=== PATIENT | female | born 1995 | race African-American/Black ===

== ENCOUNTER 2017-02-06 00:24 | Outpatient (CLI) | payer OTHER, BC ==
[2017-02-06 01:35] LABS: APPEARANCE,URINE CLEAR; BILIRUBIN,URINE NEGATIVE (NEGATIVE); GLUCOSE, URINE NEGATIVE (NEGATIVE); KETONES,URINE TRACE mg/dL (NEGATIVE); LEUKOCYTE ESTERASE,URINE NEGATIVE (NEGATIVE); NITRITE,URINE NEGATIVE (NEGATIVE); PROTEIN,URINE NEGATIVE (NEGATIVE); URINE SPECIFIC GRAVITY 1.006; UROBILINOGEN,URINE NEGATIVE mg/dL (<2.0)
--- NOTE | 2017-02-06 02:13 | Non Stress Test Report ---
Non Stress Test Datetime Report Generated by CPN: 02/06/2017 02:13 DEMOGRAPHIC Test Number: 1 EGA NST: 39.1 INDICATION Indication for Study: Ordered by Provider MONITORING Monitor Explained: Monitor Explained; Test Explained; Patient Verbalized Understanding Time on Monitor: 02/06/2017 00:49 Time off Monitor: 02/06/2017 01:57 NST Duration: 68 NST INTERVENTIONS NST Interventions: PO Hydration; Reposition Patient Physician Notified NST: Dr. Neilsen BABY A: [id number] BABY A Movement : Present Contraction Frequency : 4-10 FHR Baseline : 125 Accelerations : 15X15 Decelerations : None Variability : Moderate 6-25bpm NST Review: Meets Criteria for Reactive NST NST Review and Verified By : Jordan Bradford RN NST Results: Reactive NST REPORT Report Trigger: Send Report
[2017-02-06 02:33] LABS: URINE BARBITURATES SCREEN NEGATIVE; URINE METHADONE SCREEN NEGATIVE; URINE OPIATES LOW NEGATIVE; URINE PHENCYCLIDINE SCREEN NEGATIVE
--- NOTE | 2017-02-06 04:47 | L&D Admission Assessment ---
LD ADM ASMT Datetime Report Generated by CPN: 02/06/2017 04:45 Weight (lb): 167 (02/06/2017 00:43:QS system process) Weight (kg): 75.9 (02/06/2017 00:43:QS system process) Total Wt Gain (lb): 22 (02/06/2017 00:43:QS system process) Wt Gain (kg): 10.1 (02/06/2017 00:43:QS system process) Frequency (min): 1.5-6 (02/06/2017 01:57:Monica Lattibeaudeir, RN) Frequency (min): 1.5-5.5 (02/06/2017 01:30:Monica Lattibeaudeir, RN) Frequency (min): x1 (02/06/2017 01:01:Monica Lattibeaudeir, RN) Duration (sec): 60-140 (02/06/2017 01:57:Monica Lattibeaudeir, RN) Duration (sec): 60-130 (02/06/2017 01:30:Monica Lattibeaudeir, RN) Duration (sec): 110 (02/06/2017 01:01:Monica Lattibeaudeir, RN) Quality: Moderate (02/06/2017 01:57:Monica Lattibeaudeir, RN) Quality: Mild/Moderate (02/06/2017 01:30:Monica Lattibeaudeir, RN) Quality: Moderate (02/06/2017 01:01:Monica Lattibeaudeir, RN) Resting Tone [place]: Relaxed (02/06/2017 01:57:Monica Lattibeaudeir, RN) Resting Tone [place]: Relaxed (02/06/2017 01:30:Monica Altman RN) Resting Tone [place]: Relaxed (02/06/2017 01:01:Monica Altman RN) Dilatation (cm): 2.5 (02/06/2017 00:55:Monica Altman RN) Effacement (%): 80 (02/06/2017 00:55:Monica Altman RN) Station: -3 (02/06/2017 00:55:Monica Altman RN) FHR Baseline Rate (bpm) Baby A: 120 (02/06/2017 01:57:Monica Altman RN) FHR Baseline Rate (bpm) Baby A: 120 (02/06/2017 01:30:Monica Altman RN) FHR Baseline Rate (bpm) Baby A: 135 (02/06/2017 01:01:Monica Altman RN) Variability Baby A: Moderate 6-25 bpm (02/06/2017 01:57:Monica Altman RN) Variability Baby A: Moderate 6-25 bpm (02/06/2017 01:30:Monica Altman RN) Variability Baby A: Moderate 6-25 bpm (02/06/2017 01:01:Monica Altman RN) Accelerations Baby A: 15X15 (02/06/2017 01:57:Monica Altman RN) Accelerations Baby A: 15X15 (02/06/2017 01:30:Monica Altman RN) Accelerations Baby A: 15X15 (02/06/2017 01:01:Monica Altman RN)
--- NOTE | 2017-02-06 04:47 | Antepartum Discharge Summary ---
Antepartum DC Datetime Report Generated by CPN: 02/06/2017 04:45 Diet: Regular (02/06/2017 02:01:Monica Altman RN) Activity: Normal Activity (02/06/2017 02:01:Monica Altman RN) Instructions Given To: Patient (02/06/2017 02:01:Monica Altman RN) Instructions Understood: Patient Verbalized Understanding; Support Person Verbalized Understanding (02/06/2017 02:01:Monica Altman RN) Referrals: None (02/06/2017 02:01:Monica Altman RN) Educational Materials- Other: Pt given labor signs and kick count care notes. (02/06/2017 02:01:Monica Altman RN) Discharged AMA: No (02/06/2017 02:01:Monica Altman RN) Discharge Date/Time: 02/06/2017 02:06 (02/06/2017 02:01:Monica Altman RN) Discharged To: Home (02/06/2017 02:01:Monica Altman RN) Discharge Provider Name: Dr. Walsh (02/06/2017 02:01:Monica Altman RN) Accompanied By: (02/06/2017 02:01:Monica Atlman RN) Discharge Method: Ambulatory (02/06/2017 02:01:Monica Altman RN) Condition: Stable (02/06/2017 02:01:Monica Altman RN) Follow Up With: [facility] (02/06/2017 02:01:Monica Altman RN) Follow Up On: As Scheduled (02/06/2017 02:01:Monica Altman RN) Follow Up Phone Number: [facility] - (02/06/2017 02:01:Monica Altman RN)
--- NOTE | 2017-02-06 04:47 | L&D Flow Sheet ---
LD Flowsheet Datetime Report Generated by CPN: 02/06/2017 04:45 Datetime: 02/06/2017 02:06 Additional Nursing Comments: Informed pt of orders received. Pt declines Ambien. Pt advised to keep appts as scheduled and f/u in L_D or physician's office as needed. Pt given labor signs and kick counts care notes. Pt verbalized understanding and denies any questions at this time. (Monica Altman RN) Datetime: 02/06/2017 01:57 Monitor Mode: External (Monica Lattibeaudeir, RN) Frequency (min): 1.5-6 (Monica Lattibeaudeir, RN) Quality: Moderate (Monica Lattibeaudeir, RN) Duration (sec): 60-140 (Monica Lattibeaudeir, RN) Resting Tone ([place]): Relaxed (Monica Lattibeaudeir, RN) Monitor Mode: External US (Monica Lattibeaudeir, RN) FHR Baseline Rate : 120 (Monica Lattibeaudeir, RN) Variability: Moderate 6-25 bpm (Monica Lattibeaudeir, RN) Accelerations: 15X15 (Monica Lattibeaudeir, RN) Comments: Monitors removed for discharge. (Monica Lattibeaudeir, RN) Datetime: 02/06/2017 01:54 Communication Comments: Informed Dr. Walsh of SVE, contraction pattern, strip, and UA results. Received orders to discharge home. Patient may have ambien 10 mg PO prior to discharge if wanted. (Monica Lattibeaudeir, RN) Datetime: 02/06/2017 01:30 Monitor Mode: External (Monica Lattibeaudeir, RN) Frequency (min): 1.5-5.5 (Monica Lattibeaudeir, RN) Quality: Mild/Moderate (Monica Lattibeaudeir, RN) Duration (sec): 60-130 (Monica Lattibeaudeir, RN) Resting Tone ([place]): Relaxed (Monica Lattibeaudeir, RN) Monitor Mode: External US (Monica Lattibeaudeir, RN) FHR Baseline Rate : 120 (Monica Lattibeaudeir, RN) Variability: Moderate 6-25 bpm (Monica Lattibeaudeir, RN) Accelerations: 15X15 (Monica Lattibeaudeir, RN) Datetime: 02/06/2017 01:19 Monitor Interventions for FHR: Ultrasound Adjusted (Monica Lattibeaudeir, RN) Patient Position/Activity: Right Lateral (Monica Lattibeaudeir, RN) Datetime: 02/06/2017 01:01 Monitor Mode: External (Monica Lattibeaudeir, RN) Frequency (min): x1 (Monica Lattibeaudeir, RN) Quality: Moderate (Monica Lattibeaudeir, RN) Duration (sec): 110 (Monica Lattibeaudeir, RN) Resting Tone (Palpate): Relaxed (Monica Lattibeaudeir, RN) Monitor Mode: External US (Monica Lattibeaudeir, RN) FHR Baseline Rate : 135 (Monica Lattibeaudeir, RN) Variability: Moderate 6-25 bpm (Monica Lattibeaudeir, RN) Accelerations: 15X15 (Monica Lattibeaudeir, RN) Datetime: 02/06/2017 00:57 I/O Interventions: Up to BR (Monica Lattibeaudeir, RN) Datetime: 02/06/2017 00:55 Dilatation (cm): 2.5 (Monica Lattibeaudeir, RN) Effacement (%): 80 (Monica Lattibeaudeir, RN) Station: -3 (Monica Lattibeaudeir, RN) Exam by: S. Lattibeaudeir, RN (Monica Lattibeaudeir, RN) Vaginal Bleeding: None (Monica Lattibeaudeir, RN) Cervix, Consistency: Soft (Monica Lattibeaudeir, RN) Cervix, Position: Posterior (Monica Lattibeaudeir, RN) Datetime: 02/06/2017 00:52 NBP Sys/Cecy/Mean (mmHg): 117 (QS system process) : 67 (QS system process) : 86 (QS system process) Pulse: 84 (QS system process) Datetime: 02/06/2017 00:49 Comments: monitors applied (Monica Lattibeaudeir, RN) Datetime: 02/06/2017 00:48 I/O Interventions: Up to BR (Monica Altman RN)
--- NOTE | 2017-02-06 04:47 | L&D Discharge Summary ---
OB Discharge Summary Datetime Report Generated by CPN: 02/06/2017 04:45 DISCHARGE DIAGNOSIS Diagnosis/Symptoms: False Labor Number of Babies in Womb: 1 Parity: 1 DIET/ACTIVITY/RESTRICTIONS Diet: Regular Activity: Normal Activity TEACHING/INSTRUCTIONS/REFERRALS Instructions Given To: Patient Instructions Understood: Patient Verbalized Understanding; Support Person Verbalized Understanding Referrals: None Educational Materials- Other: Pt given labor signs and kick count care notes. DISCHARGE INFORMATION Discharged AMA: No Discharge Date/Time: 02/06/2017 02:06 Discharged To: Home Discharge Provider Name: Dr. Walsh Accompanied By: Discharge Method: Ambulatory Condition: Stable FOLLOW UP INFORMATION Follow Up With: [facility] Follow Up On: As Scheduled Follow Up Phone Number: [facility] -
--- NOTE | 2017-02-06 04:47 | L&D General Admission ---
General Admit Datetime Report Generated by CPN: 02/06/2017 04:45 INFORMATION Patient Age: 21 (01/31/2017 07:38:QS system process) EDC: 02/12/2017 00:00 (02/06/2017 00:28:Flora Tao RN) : 2 (02/06/2017 00:28:Monica Altman RN) Para: 1 (02/06/2017 00:28:Monica Altman RN) Term: 1 (02/06/2017 00:28:Monica Altman RN) : 0 (02/06/2017 00:28:Monica Altman RN) Spontaneous Abortions: 0 (02/06/2017 00:28:Monica Altman RN) Induced Abortions: 0 (02/06/2017 00:28:Monica Altman RN) Livin (02/06/2017 00:28:Monica Altman RN) Cesareans: 0 (02/06/2017 00:28:Monica Altman RN) VBACs: 0 (02/06/2017 00:28:Monica Altman RN) Ectopic: 0 (02/06/2017 00:28:Monica Altman RN) Multiple Births: 0 (02/06/2017 00:28:Monica Altman RN) Baby, Number in Womb: 1 (02/06/2017 00:28:Monica Altman RN) CARE Primary Drama Professor: [facility] (02/06/2017 00:28:Monica Altman RN) Month of 1st Visit: July 2016 (02/06/2017 00:28:Monica Altman RN) Adequate Care: Yes (02/06/2017 00:28:Monica Altman RN) Prepregnancy Weight (lb): 145 (02/06/2017 00:28:Monica Altman RN) Prepregnancy Weight (kg): 65.9 (02/06/2017 00:28:QS system process) Height (in): 66 (02/06/2017 00:43:QS system process) ALLERGIES Medication Allergy: No (02/06/2017 00:28:Monica Altman RN) Medication Allergies: No Known Allergies (11/17/2015) (01/31/2017 07:38:QS system process) Latex Allergy: No Latex Allergies (02/06/2017 00:28:Monica Altman RN) COMMUNICATION Primary Language: Singaporean (02/06/2017 00:28:Monica Altman RN) Medical Tx Preferred Language: Singaporean (02/06/2017 00:28:Monica Altman RN) Communication Barrier(s): None (02/06/2017 00:28:Monica Altman RN) DEMOGRAPHICS Address: [address] [place] [address] (01/31/2017 07:38:QS system process) Zipcode: [address] (01/31/2017 07:38:QS system process) Home (01/31/2017 07:38:QS system process) SSN: [id number] (01/31/2017 07:38:QS system process) Next of Kin Name: YENNY CHUNG (01/31/2017 07:38:QS system process) Next of Kin (01/31/2017 07:38:QS system process) Next of Kin Relationship: SPO (01/31/2017 07:38:QS system process) Date of : 1995 (01/31/2017 07:38:QS system process) Marital Status: (01/31/2017 07:38:QS system process) Sex: Female (01/31/2017 07:38:QS system process) Race: (01/31/2017 07:38:QS system process) Ethnicity: Non- or (01/31/2017 07:38:QS system process) Bahai: Hindu (01/31/2017 07:38:QS system process) LABS Blood Type: A Positive (02/06/2017 00:28:Monica Altman RN) Antibody Screen: Negative (02/06/2017 00:28:Monica Altman RN) Rho(G) this : Not Applicable (02/06/2017 00:28:Monica Altman RN) Group Beta Strep: Negative (02/06/2017 00:28:Monica Altman RN) Gonorrhea: Negative (02/06/2017 00:28:Monica Altman RN) Chlamydia: Negative (02/06/2017 00:28:Monica Altman RN) RPR/VDRL: Nonreactive (02/06/2017 00:28:Monica Altman RN) HIV Results: Negative (02/06/2017 00:28:Monica Altman RN) Hepatitis B: Negative (02/06/2017 00:28:Monica Altman RN) Rubella: Immune (02/06/2017 00:28:Monica Altman RN) OB/PREVIOUS HISTORY Previous Procedures: Ultrasound; NST (02/06/2017 00:28:Monica Altman RN) Current Procedures: Ultrasound; NST (02/06/2017 00:28:Monica Altman RN) History of PIH: Yes (02/06/2017 00:28:Monica Altman RN) Comments Obstetrical History: G1- of female @ 39.6 wks gestation 8lbs 5oz G2-Current (02/06/2017 00:28:Monica Altman RN) MEDICAL HISTORY Med Hx Kidney Disease/UTI: Yes (02/06/2017 00:28:Monica Altman RN)
== END 2017-02-06 02:06 | disposition home or self-care (01) ==
LOC: LC 00:24
PROVIDERS: ATTEND Specialist
PROC: 4A1HXCZ Monitoring of Products of Conception, Cardiac Rate, External Approach (ICD-10-PCS; principal; 2017-02-06)
DX: O47.1 False labor at or after 37 completed weeks of gestation (principal); Z3A.39 39 weeks gestation of pregnancy
CPT/HCPCS: 59025; 80307; 81005

== ENCOUNTER 2017-02-08 19:16 | Inpatient (IN) | payer OTHER, BC ==
[2017-02-08] MEDS ORDERED: RINGERS SOLUTION,LACTATED 1,000 ML IV ONE (19:52)
[2017-02-08] MEDS ORDERED: FENTANYL/BUPIVACAINE/NS/PF 100 ML EPI PRN (19:54)
[2017-02-08] MEDS ORDERED: BENZOIN/ALOE VERA/STORAX/TOLU TINCTURE 60 ML TP PRN (19:54)
[2017-02-08] MEDS ORDERED: BUPIVACAINE HCL 0.25 % INJ/PF (2.5 MG/1 ML) 30 ML VIAL INFIL ONE (19:54)
[2017-02-08] MEDS ORDERED: EPHEDRINE SULFATE INJ 50 MG/1 ML AMPULE IV PRN (19:54)
[2017-02-08 19:58] LABS: APPEARANCE,URINE SLIGHTLY-CLOUDY; BILIRUBIN,URINE NEGATIVE (NEGATIVE); GLUCOSE, URINE NEGATIVE (NEGATIVE); KETONES,URINE NEGATIVE (NEGATIVE); LEUKOCYTE ESTERASE,URINE TRACE (NEGATIVE); NITRITE,URINE NEGATIVE (NEGATIVE); PROTEIN,URINE NEGATIVE (NEGATIVE); URINE SPECIFIC GRAVITY 1.009; UROBILINOGEN,URINE NEGATIVE mg/dL (<2.0)
--- NOTE | 2017-02-08 20:03 | L&D Flow Sheet ---
LD Flowsheet Datetime Report Generated by CPN: 02/08/2017 20:00 Datetime: 02/08/2017 19:50 Communication Comments: DrSharita Infante notified of pt's dilation . Orders received to admit. (Camryn Voss, JESUSITA) Datetime: 02/08/2017 19:47 Dilatation (cm): 5.0 (Camryn Voss RN) Effacement (%): 80 (Camryn Voss RN) Station: 0 (Camryn Voss RN) Exam by: JESSICA Ellison (Camryn Voss RN) Vaginal Bleeding: None (Camryn Voss RN) Cervix, Consistency: Soft (Camryn Voss RN) Cervix, Position: Midposition (Camryn Voss RN) Datetime: 02/08/2017 19:39 Frequency (min): q 2 min (Camryn Voss RN) Pain Scale: 3 (Camryn Voss RN) Pain Presence: Intermittent (Camryn Voss RN) Pain Type: Cramping (Camryn Voss RN) Pain Location: Abdomen (Camryn Voss RN) Pain Coping: Breathing Through Contractions (Camryn Voss RN) Vaginal Bleeding: None (Camryn Voss RN) Level of Consciousness: Fully Conscious (Camryn Voss RN) DTR's/Clonus: DTRs 1+ (Camryn Voss RN) Headache: Denies (Camryn Voss RN) Breath Sounds, Left: Clear and Equal (Camryn Voss RN) Breath Sounds, Right: Clear and Equal (Camryn Voss RN) Nausea/Vomiting: Denies (Camryn Voss RN) RUQ Epigastric Pain: Denies (Camryn Voss, RN) Datetime: 02/08/2017 19:31 NBP Sys/Cecy/Mean (mmHg): 136 (QS system process) : 88 (QS system process) : 107 (QS system process) Pulse: 88 (QS system process)
[2017-02-08 20:12] LABS: URINE BARBITURATES SCREEN NEGATIVE; URINE METHADONE SCREEN NEGATIVE; URINE OPIATES LOW NEGATIVE; URINE PHENCYCLIDINE SCREEN NEGATIVE
[2017-02-08] MEDS ORDERED: EPHEDRINE SULFATE INJ 50 MG/1 ML AMPULE ONE ×2 (20:17→20:23)
[2017-02-08] MEDS ORDERED: FENTANYL/BUPIVACAINE/NS/PF 200 MCG/100 ML RTUINJ EPI ONE (20:17)
[2017-02-08] MEDS ORDERED: BUPIVACAINE HCL 0.25 % INJ/PF (2.5 MG/1 ML) 30 ML VIAL ONE (20:17)
[2017-02-08] MEDS ORDERED: LIDOCAINE 1% INJ-PF (10 MG/ML) 30 ML SDV ONE (20:18)
[2017-02-08] MEDS ORDERED: OXYTOCIN/NORMAL SALINE 20 UNIT/1,000 ML RTUINJ ONE (20:18)
[2017-02-08] MEDS ORDERED: MISOPROSTOL 0.2 MG TABLET ONE (20:18)
[2017-02-08 20:26] LABS: ABSOLUTE EOSINOPHILS # (AUTO) 0.2 10^3/uL (0.0-0.6); ABSOLUTE LYMPHOCYTES (AUTO) 2.8 10^3/uL (0.5-4.7); ABSOLUTE MONOCYTES (AUTO) 0.7 10^3/uL (0.1-1.4); ABSOLUTE NEUT (AUTO) 5.6 10^3/uL (1.7-8.2); BASOPHILS % (AUTO) 0.4 % (0-2); EOSINOPHILS % (AUTO) 2.4 % (0-6); HEMATOCRIT 35.6 % (36.0-47.0); HEMOGLOBIN 12.5 g/dL (12.0-15.5); HGB HCT DIFFERENCE 1.9; LYMPHOCYTES % (AUTO) 29.7 % (13-45); MEAN CORPUSCULAR HEMOGLOBIN 30.6 pg (27.0-33.4); MEAN CORPUSCULAR HGB CONC 35.3 g/dL (32.0-36.0); MEAN CORPUSCULAR VOLUME 87 fl (80-97); MONOCYTES % (AUTO) 7.5 % (3-13); RED CELL DISTRIBUTION WIDTH 13.7 % (11.5-14.0); WHITE BLOOD COUNT 9.3 10^3/uL (4.0-10.5)
[2017-02-08] MEDS ORDERED: DIBUCAINE 1% OINTMENT 28 GM TP PRN (23:49)
[2017-02-08] MEDS ORDERED: MEASLES,MUMPS&RUBELLA VACC/PF 0.5 ML VIAL SUBCUT PRN (23:49)
[2017-02-08] MEDS ORDERED: ACETAMINOPHEN WITH CODEINE #3 TABLET PO PRN ×2 (23:49)
[2017-02-08] MEDS ORDERED: OXYTOCIN/NORMAL SALINE 1,000 ML IV PRN (23:49)
[2017-02-08] MEDS ORDERED: DIPH/PERTUSS(ACELL)/TETANUS VAC/PF 0.5 ML SYR (>=10YO) IM PRN (23:49)
[2017-02-08] MEDS ORDERED: BENZOCAINE/MENTHOL AEROSOL SPRAY 56 ML TOP PRN (23:49)
[2017-02-08] MEDS ORDERED: ZOLPIDEM TARTRATE 5 MG TABLET PO PRN (23:49)
--- NOTE | 2017-02-09 01:20 | Delivery Summary ---
Del Sum A-C Datetime Report Generated by CPN: 02/09/2017 01:19 ADMISSION DATA Chief Complaint: Uterine Contractions Indication for Induction: Not Applicable Admission Impression: Term, Intrauterine DELIVERY PERSONNEL Delivery Doctor:: Zara Infante MD Anesthesiologist:: Samson oWody MD Labor and Delivery Nurse:: Ling Michaels RN Labor and Delivery Nurse:: Sabi Oglesby RN Community Association Manager/SOLAR ELECTRIC/PHOTOVOLTAIC INSTALLER: Yanet Mc, TOPPIECE CHOPPER MATERNAL INFORMATION Delivery Anesthesia: Epidural Medications After Delivery: Pitocin Drip 20 Units/1000ml NSS Estimated Blood Loss (ml): 200 Maternal Complications: None LABOR SUMMARY EDC: 02/12/2017 00:00 No. Babies in Womb: 1 Attempted: No Labor Anesthesia: Epidural LABOR INFORMATION Reason for Induction: Not Applicable Onset of Labor: 02/08/2017 19:47 Complete Dilatation: 02/08/2017 23:03 Oxytocin: N/A Group B Beta Strep: Negative Antibiotics # of Doses: 0 Steroids Given: None Reason Steroids Not Administered: Not Applicable MEMBRANES Membranes Rupture Method: Spontaneous Rupture of Membranes: 02/08/2017 23:07 Length of Rupture (hr): 0.48 Amniotic Fluid Color: Clear Amniotic Fluid Amount: Moderate Amniotic Fluid Odor: Normal STAGES OF LABOR Stage 1 hr: 3 Stage 1 min: 16 Stage 2 hr: 0 Stage 2 min: 33 Stage 3 hr: 0 Stage 3 min: 7 Total Time in Labor hr: 3 Total Time in Labor min: 56 VAGINAL DELIVERY Episiotomy: None Laceration Extension: N/A Laceration Type: None Laceration Repair: Not Applicable Sponge Count Correct: N/A Sharps Count Correct: N/A CSECTION DELIVERY Primary Indication: N/A Secondary Indication: N/A CSection Incidence: N/A Labor: N/A Elective: N/A CSection Incision: N/A BABY A INFORMATION Delivery Date/Time: 02/08/2017 23:36 Method of Delivery: Vaginal Born in Route : No : N/A Forceps: N/A Vacuum Extraction: N/A Shoulder Dystocia : No PRESENTATION/POSITION BABY A Presentation: Cephalic Cephalic Presentation: Vertex Vertex Position: Left Occipital Anterior Breech Presentation: N/A PLACENTA INFORMATION BABY A Placenta Delivery Time : 02/08/2017 23:43 Placenta Method of Delivery: Spontaneous Placenta Status: Delivered SCORES BABY A Heart Rate 1 min: >100 bpm Resp Effort 1 min: Good Cry Reflex Irritability 1 min: Cough or Sneeze or Pulls Away Muscle Tone 1 min: Active Motion Color 1 min: Body [place], Extremities Blue Resuscitation Effort 1 min: Tactile Stimulation SCORE 1 MIN: 9 Heart Rate 5 min: >100 bpm Resp Effort 5 min: Good Cry Reflex Irritability 5 min: Cough or Sneeze or Pulls Away Muscle Tone 5 min: Active Motion Color 5 min: Body [place], Extremities Blue Resuscitation Effort 5 min: Tactile Stimulation SCORE 5 MIN: 9 INFANT INFORMATION BABY A Gestational Age at Delivery: 39.3 Gestational Status: Full Term- 39- 40.6 Weeks Outcome : Liveborn Condition : Stable Sex: Male IDENTIFICATION BABY A Infant Verification Date/Time: 02/09/2017 00:01 ID Band Number: [id number] Mother's Name Verified: Yes Infant RN Verifying : SSharita Altman, RN _ Syd Armando RN WEIGHT/LENGTH BABY A Birthweight (gm): 3435 Infant Weight (lb): 7 Weight (oz): 9 Length (in): 19.50 Length (cm): 49.53 CORD INFORMATION BABY A No. Cord Vessels: 3 Nuchal Cord : N/A Cord Blood Taken: Yes-For Storage (Mom's Blood type +) Suction: Mouth; Nose ASSESSMENT BABY A Complications: Multiple Variable Decels Physical Findings at Delivery: Within Normal Limits Respirations: Appears Normal Skin to Skin: Yes Skin to Skin Time (min): 90 Cyber Reverse Engineer/ALS Called : No Care By: Afshin Preciadol, RN Transferred To: Remains with Mother BABY B INFORMATION : N/A SIGNATURES Signature: with User ID: [email or web address]
--- NOTE | 2017-02-09 01:53 | Admission Physical ---
Datetime Report Generated by CPN: 02/09/2017 01:53 CURRENT ADMISSION Chief Complaint: Uterine Contractions Indication for Induction: Not Applicable Admit Plan: Admit to Unit; Initiate Labor Protocol ALLERGIES Medication Allergies: No Medication Allergies: No Known Allergies (02/08/2017) Medication Allergies: No Known Allergies (11/17/2015) Latex: No Latex Allergies OBSTETRICAL HISTORY EDC: 02/12/2017 00:00 : 2 Para: 1 Term: 1 : 0 SAB: 0 IAB: 0 Ectopic: 0 Livin Cesareans: 0 VBACs: 0 Multiple Births: 0 Gestational Diabetes: No Rh Sensitization: No Incompetent Cervix: No PHILOMENA: No Infertility: No ART Treatment: No Uterine Anomaly: No IUGR: No Hx Previous C/S: No Macrosomia: No Hx Loss/Stillborn: No PIH: Yes Hx : No Placenta Previa/Abruption: No Depression/PP Depression: No PTL/PROM: No Post Hemorrhage: No Current Procedures: Ultrasound; NST Obstetrical History Comments: G1- of female @ 39.6 wks gestation 8lbs 5oz (on mag) G2-Current SEE RECORDS Alcohol: No Marijuana : No Cocaine: No Other Illicit Drugs: No Cigarettes: Never Smoker. [id number] MEDICAL HISTORY Diabetes: No Blood Transfusion: No Pulmonary Disease (Asthma, TB): No Breast Disease: No Hypertension: No Oncology Social Work Surgery: No Heart Disease: No Hosp/Surgery: Yes Autoimmune Disorder: No Anesthetic Complications: No Kidney Disease: Yes Abnormal Pap Smear: No Neuro/Epilepsy: No Psychiatric Disorders: No Other Medical Diseases: No Hepatitis/Liver Disease: No Significant Family History: No Varicosities/Phlebitis: No Trauma/Violence : No Thyroid Dysfunction: No Medical History Comments: UTI x 1 during ;hospitalized for childbirth INFECTIOUS HISTORY Gonorrhea: No Genital Herpes: No Chlamydia: No Tuberculosis: No Syphilis: No Hepatitis: No HIV/AIDS Exposure: No Rash or Viral Illness: No HPV: No Infectious History Comments: denies PHYSICAL EXAM General: Normal HEENT: Normal Neurologic: Normal Thyroid: Normal Heart: Normal Lungs: Normal Breast: Normal Back: Normal Abdomen: Normal Genitourinary Exam: Normal Extremities: Normal DTRs: Normal Pelvic Type: Adequate Vital Signs: Reviewed VAGINAL EXAM Dilatation: 5 Effacement: 80 Station: 0 MEMBRANES Pooling: Negative FETUS A EGA: 39.3 Monitoring: External US FHR- Baseline: 140 Variability: Moderate 6-25bpm Accelerations: 15X15 Decelerations: None Estimated Weight (gm): 3800 Presentation: Vertex PLANS FOR LABOR AND DELIVERY Labor and Delivery: None Pain Management: Epidural Feeding Preference: Breast Benefit of Breast Feed Discussed: Yes Circumcision: Yes INFORMED CONSENT Signature: with User ID: [email or web address]
[2017-02-09] MEDS: IBUPROFEN 800 MG TABLET PO SCH ×3 (05:19→22:08)
--- NOTE | 2017-02-09 07:00 | L&D Flow Sheet ---
LD Flowsheet Datetime Report Generated by CPN: 02/09/2017 07:00 Datetime: 02/09/2017 01:42 Stage of : Recovery (Crystal Brando, RN) Datetime: 02/09/2017 01:33 NBP Sys/Cecy/Mean (mmHg): 130 (QS system process) : 74 (QS system process) : 97 (QS system process) Pulse: 80 (QS system process) Datetime: 02/09/2017 01:30 Stage of : Recovery (Crystal Brando, RN) Datetime: 02/09/2017 01:18 NBP Sys/Cecy/Mean (mmHg): 133 (QS system process) : 83 (QS system process) : 104 (QS system process) Pulse: 71 (QS system process) Datetime: 02/09/2017 01:15 Stage of : Recovery (Crystal Claremont, RN) Datetime: 02/09/2017 01:03 NBP Sys/Cecy/Mean (mmHg): 112 (QS system process) : 63 (QS system process) : 79 (QS system process) Pulse: 84 (QS system process) Datetime: 02/09/2017 01:00 Stage of : Recovery (Crystal Brando, RN) Datetime: 02/09/2017 00:48 NBP Sys/Cecy/Mean (mmHg): 121 (QS system process) : 76 (QS system process) : 94 (QS system process) Pulse: 68 (QS system process) Datetime: 02/09/2017 00:45 Stage of : Recovery (Crystal Brando, RN) Datetime: 02/09/2017 00:33 NBP Sys/Cecy/Mean (mmHg): 127 (QS system process) : 63 (QS system process) : 88 (QS system process) Pulse: 81 (QS system process) Datetime: 02/09/2017 00:30 Stage of : Recovery (Crystal Brando, RN) Pain Scale: 1 (Crystal Brando, RN) Pain Presence: Intermittent (Crystal Brando, RN) Pain Type: Ache (Crystal Claremont, RN) Pain Location: Abdomen (Crystal Claremont, RN) Pain Goal: 1 (Crystal Claremont, RN) Pain Relief Measures: Comfort Measures (Crystal Claremont, RN) Datetime: 02/09/2017 00:17 NBP Sys/Cecy/Mean (mmHg): 142 (QS system process) : 67 (QS system process) : 92 (QS system process) Pulse: 82 (QS system process) Datetime: 02/09/2017 00:15 Stage of : Recovery (Crystal Claremont, RN) Datetime: 02/09/2017 00:03 NBP Sys/Cecy/Mean (mmHg): 130 (QS system process) : 70 (QS system process) : 94 (QS system process) Pulse: 86 (QS system process) Datetime: 02/09/2017 00:00 Stage of : Recovery (Crystal Brando, RN) Pain Scale: 0 (Crystal Brando, RN) Pain Presence: None/Denies (Crystal Claremont, RN) Pain Type: N/A (Crystal Brando, RN) Pain Goal: 1 (Crystal Claremont, RN) Pain Relief Measures: Comfort Measures (Crystal Claremont, RN) Datetime: 02/08/2017 23:48 NBP Sys/Cecy/Mean (mmHg): 132 (QS system process) : 60 (QS system process) : 86 (QS system process) Pulse: 94 (QS system process) LaborFlag: Labor (QS system process) Datetime: 02/08/2017 23:43 Stage 2 Comments: intact placenta. (Crystal Claremont, RN) Datetime: 02/08/2017 23:36 Stage 2 Comments: viable baby boy. (Crystal Brando, RN) Datetime: 02/08/2017 23:33 NBP Sys/Cecy/Mean (mmHg): 135 (QS system process) : 70 (QS system process) : 93 (QS system process) Pulse: 89 (QS system process) LaborFlag: Labor (QS system process) Datetime: 02/08/2017 23:32 Pushing: Coached on Pushing; Urge to Push (Crystal Brando, RN) Pushing Position: Pushing with Contractions (Crystal Claremont, RN) Datetime: 02/08/2017 23:30 Pushing: Urge to Push (Crystal Claremont, RN) Pushing Position: Pushing with Contractions (Crystal Claremont, RN) Pushing Progress: with Pushing (Crystal Claremont, RN) Datetime: 02/08/2017 23:23 Stage of : Labor (Ling Bennett RN) Communication: RN at Bedside; RN Reviewed Strip; Call/Page Placed to Provider (Ling Bennett RN) Provider Notified (Name): Dr. Infante (Ling Bennett RN) Notification Reason: Status Update; Status; Labor Status (Ling Bennett RN) Datetime: 02/08/2017 23:18 NBP Sys/Cecy/Mean (mmHg): 133 (QS system process) : 74 (QS system process) : 96 (QS system process) Pulse: 82 (QS system process) LaborFlag: Antepartum (QS system process) Datetime: 02/08/2017 23:15 Monitor Mode: External (Ling Bennett RN) Frequency (min): 2-3 (Ling Bennett RN) Quality: Moderate to Strong (Ling Bennett RN) Duration (sec): 60-90 (Ling Bennett RN) Duration Criteria: Less than Two 120 Second Contractions (Crystal Claremont, RN) Resting Tone (Palpate): Relaxed (Crystal Brando, RN) Monitor Mode: External US (Crystal Brando, RN) FHR Baseline Rate : 135 (Crystal Brando, RN) Variability: Moderate 6-25 bpm (Crystal Claremont, RN) Accelerations: 15X15 (Crystal Claremont, RN) Actions for Decelerations: Side to Side (Crystal Brando, RN) Datetime: 02/08/2017 23:09 Actions for Decelerations: Side to Side (Crystal Claremont, RN) Datetime: 02/08/2017 23:07 Membrane Status: Ruptured (Crystal Brando, RN) Membranes Rupture Method: Spontaneous (Crystal Claremont, RN) Amniotic Fluid Color: Clear (Crystal Brando, RN) Amniotic Fluid Amount: Moderate (Crystal Claremont, RN) Amniotic Fluid Odor: Normal (Crystal Claremont, RN) Datetime: 02/08/2017 23:03 NBP Sys/Cecy/Mean (mmHg): 121 (QS system process) : 75 (QS system process) : 91 (QS system process) Pulse: 90 (QS system process) Dilatation (cm): 10.0 (Crystal Claremont, RN) Effacement (%): 100 (Crystal Claremont, RN) Station: 1 (Crystal Brando, RN) Exam by: Kaylene bennett RN (Crystal Brando, RN) LaborFlag: Antepartum (QS system process) Datetime: 02/08/2017 23:00 Monitor Mode: External; Palpation (Crystal Brando, RN) Frequency (min): 2-3.5 (Crystal Brando, RN) Quality: Moderate to Strong (Crystal Claremont, RN) Duration (sec): 60-90 (Crystal Brando, RN) Duration Criteria: Less than Two 120 Second Contractions (Crystal Claremont, RN) Resting Tone (Palpate): Relaxed (Crystal Brando, RN) Monitor Mode: External US (Crystal Brando, RN) FHR Baseline Rate : 135 (Crystal Brando, RN) Variability: Moderate 6-25 bpm (Crystal Claremont, RN) Accelerations: 15X15 (Crystal Claremont, RN) Decelerations: Early (Crystal Brando, RN) Patient Position/Activity: Tailors (Crystal Claremont, RN) Datetime: 02/08/2017 22:58 Dilatation (cm): 9.5 (Crystal Claremont, RN) Effacement (%): 100 (Crystal Claremont, RN) Station: 0 (Crystal Brando, RN) Exam by: Kaylene DominguezBrando, RN (Crystal Claremont, RN) Membrane Status: Bulging (Crystal Claremont, RN) Vaginal Bleeding: None (Crystal Claremont, RN) Datetime: 02/08/2017 22:47 NBP Sys/Cecy/Mean (mmHg): 118 (QS system process) : 76 (QS system process) : 92 (QS system process) Pulse: 76 (QS system process) LaborFlag: Antepartum (QS system process) Datetime: 02/08/2017 22:45 Monitor Mode: External; Palpation (Crystal Brando, RN) Frequency (min): 2-4 (Crystal Brando, RN) Quality: Moderate to Strong (Crystal Claremont, RN) Duration (sec): 60-90 (Crystal Claremont, RN) Duration Criteria: Less than Two 120 Second Contractions (Crystal Claremont, RN) Resting Tone (Palpate): Relaxed (Crystal Brando, RN) Monitor Mode: External US (Crystal Brando, RN) FHR Baseline Rate : 135 (Crystal Brando, RN) Variability: Moderate 6-25 bpm (Crystal Brando, RN) Patient Position/Activity: Left Lateral; Peanut Ball (Crystal Brando, RN) Datetime: 02/08/2017 22:33 NBP Sys/Cecy/Mean (mmHg): 118 (QS system process) : 78 (QS system process) : 93 (QS system process) Pulse: 80 (QS system process) LaborFlag: Antepartum (QS system process) Datetime: 02/08/2017 22:30 Monitor Mode: External; Palpation (Crystal Claremont, RN) Monitor Interventions for UA: [place] Adjusted (Crystal Brando, RN) Frequency (min): UTD (Crystal Brando, RN) Quality: Moderate to Strong (Crystal Claremont, RN) Resting Tone (Palpate): Relaxed (Crystal Claremont, RN) Monitor Mode: External US (Crystal Claremont, RN) FHR Baseline Rate : 135 (Crystal Brando, RN) Variability: Moderate 6-25 bpm (Crystal Claremont, RN) Accelerations: 15X15 (Crystal Brando, RN) Patient Position/Activity: Left Lateral; Peanut Ball (Crystal Brando, RN) Datetime: 02/08/2017 22:17 NBP Sys/Cecy/Mean (mmHg): 120 (QS system process) : 72 (QS system process) : 92 (QS system process) Pulse: 83 (QS system process) LaborFlag: Antepartum (QS system process) Datetime: 02/08/2017 22:15 Monitor Mode: External; Palpation (Crystal Claremont, RN) Frequency (min): 2-5 (Crystal Brando, RN) Quality: Moderate to Strong (Crystal Claremont, RN) Duration (sec): 60-90 (Crystal Brando, RN) Duration Criteria: Less than Two 120 Second Contractions (Crystal Claremont, RN) Resting Tone (Palpate): Relaxed (Crystal Brando, RN) Monitor Mode: External US (Crystal Brando, RN) FHR Baseline Rate : 135 (Crystal Claremont, RN) Variability: Moderate 6-25 bpm (Crystal Claremont, RN) Patient Position/Activity: Left Lateral; Peanut Ball (Crystal Claremont, RN) Datetime: 02/08/2017 22:03 NBP Sys/Cecy/Mean (mmHg): 119 (QS system process) : 70 (QS system process) : 89 (QS system process) Pulse: 76 (QS system process) LaborFlag: Antepartum (QS system process) Datetime: 02/08/2017 22:00 Monitor Mode: External; Palpation (Crystal Claremont, RN) Frequency (min): 2.5-4 (Crystal Claremont, RN) Quality: Moderate to Strong (Crystal Claremont, RN) Duration (sec): 60-100 (Crystal Brando, RN) Duration Criteria: Less than Two 120 Second Contractions (Crystal Claremont, RN) Resting Tone (Palpate): Relaxed (Crystal Claremont, RN) Monitor Mode: External US (Crystal Brando, RN) FHR Baseline Rate : 135 (Crystal Claremont, RN) Variability: Moderate 6-25 bpm (Crystal Claremont, RN) Accelerations: 15X15 (Crystal Claremont, RN) Patient Position/Activity: Left Lateral; Peanut Ball (Crystal Claremont, RN) Datetime: 02/08/2017 21:48 NBP Sys/Cecy/Mean (mmHg): 122 (QS system process) : 58 (QS system process) : 84 (QS system process) Pulse: 84 (QS system process) LaborFlag: Antepartum (QS system process) Datetime: 02/08/2017 21:45 Monitor Mode: External; Palpation (Crystal Brando, RN) Frequency (min): 2-5 (Crystal Brando, RN) Quality: Moderate to Strong (Crystal Claremont, RN) Duration (sec): 60-110 (Crystal Claremont, RN) Duration Criteria: Less than Two 120 Second Contractions (Crystal Claremont, RN) Resting Tone (Palpate): Relaxed (Crystal Brando, RN) Monitor Mode: External US (Crystal Claremont, RN) FHR Baseline Rate : 135 (Crystal Brando, RN) Variability: Moderate 6-25 bpm (Crystal Claremont, RN) Accelerations: 15X15 (Crystal Claremont, RN) Decelerations: Early (Crystal Brando, RN) Patient Position/Activity: Right Tilt; Semi-Fowlers (Crystal Brando, RN) Datetime: 02/08/2017 21:33 NBP Sys/Cecy/Mean (mmHg): 117 (QS system process) : 67 (QS system process) : 86 (QS system process) Pulse: 81 (QS system process) LaborFlag: Antepartum (QS system process) Datetime: 02/08/2017 21:30 Monitor Mode: External; Palpation (Crystal Claremont, RN) Frequency (min): 2-3 (Crystal Brando, RN) Quality: Moderate (Crystal Claremont, RN) Duration (sec): 60-90 (Crystal Claremont, RN) Duration Criteria: Less than Two 120 Second Contractions (Crystal Brando, RN) Resting Tone (Palpate): Relaxed (Crystal Brando, RN) Monitor Mode: External US (Crystal Brando, RN) FHR Baseline Rate : 130 (Crystal Brando, RN) Variability: Moderate 6-25 bpm (Crystal Brando, RN) Accelerations: 15X15 (Crystal Brando, RN) Patient Position/Activity: Right Tilt; Semi-Fowlers (Crystal Claremont, RN) Datetime: 02/08/2017 21:19 NBP Sys/Cecy/Mean (mmHg): 117 (QS system process) : 70 (QS system process) : 89 (QS system process) Pulse: 86 (QS system process) LaborFlag: Antepartum (QS system process) Datetime: 02/08/2017 21:15 Monitor Mode: External; Palpation (Crystal Brando, RN) Frequency (min): 2-3 (Crystal Brando, RN) Quality: Moderate (Crystal Brando, RN) Duration (sec): 60-90 (Crystal Claremont, RN) Duration Criteria: Less than Two 120 Second Contractions (Crystal Brando, RN) Resting Tone (Palpate): Relaxed (Crystal Brando, RN) Monitor Mode: External US (Crystal Brando, RN) FHR Baseline Rate : 135 (Crystal Claremont, RN) Variability: Moderate 6-25 bpm (Crystal Brando, RN) Accelerations: 15X15 (Crystal Brando, RN) Patient Position/Activity: Right Tilt; Semi-Fowlers (Crystal Claremont, RN) Datetime: 02/08/2017 21:00 Monitor Mode: External; Palpation (Crystal Brando, RN) Frequency (min): 2-3 (Crystal Brando, RN) Quality: Moderate (Crystal Brando, RN) Duration (sec): 60-90 (Crystal Claremont, RN) Duration Criteria: Less than Two 120 Second Contractions (Crystal Brando, RN) Resting Tone (Palpate): Relaxed (Crystal Claremont, RN) Monitor Mode: External US (Crystal Claremont, RN) Variability: Moderate 6-25 bpm (Crystal Brando, RN) Accelerations: 15X15 (Crystal Claremont, RN) Patient Position/Activity: Right Tilt; Semi-Fowlers (Crystal Claremont, RN) I/O Interventions: Farias Cath Inserted (Crystal Claremont, RN) Datetime: 02/08/2017 20:49 NBP Sys/Cecy/Mean (mmHg): 125 (QS system process) : 74 (QS system process) : 93 (QS system process) Pulse: 76 (QS system process) LaborFlag: Antepartum (QS system process) Datetime: 02/08/2017 20:48 Dilatation (cm): 6.5 (Crystal Claremont, RN) Effacement (%): 90 (Crystal Claremont, RN) Station: 0 (Crystal Brando, RN) Exam by: Kaylene Bennett RN (Crystal Claremont, RN) Vaginal Bleeding: None (Crystal Brando, RN) Datetime: 02/08/2017 20:45 Monitor Interventions for UA: [place] Adjusted (Crystal Claremont, RN) Quality: Moderate to Strong (Crystal Brando, RN) Duration Criteria: Less than Two 120 Second Contractions (Crystal Brando, RN) Resting Tone (Palpate): Relaxed (Crystal Claremont, RN) Monitor Mode: External US (Crystal Claremont, RN) FHR Baseline Rate : 130 (Crystal Claremont, RN) Variability: Moderate 6-25 bpm (Crystal Brando, RN) Accelerations: 15X15 (Crystal Claremont, RN) Patient Position/Activity: Right Tilt; Semi-Fowlers (Crystal Brando, RN) Datetime: 02/08/2017 20:44 NBP Sys/Cecy/Mean (mmHg): 127 (QS system process) : 73 (QS system process) : 94 (QS system process) Pulse: 80 (QS system process) LaborFlag: Antepartum (QS system process) Datetime: 02/08/2017 20:34 NBP Sys/Cecy/Mean (mmHg): 125 (QS system process) : 65 (QS system process) : 88 (QS system process) Pulse: 83 (QS system process) LaborFlag: Antepartum (QS system process) Datetime: 02/08/2017 20:31 NBP Sys/Cecy/Mean (mmHg): 131 (QS system process) : 80 (QS system process) : 96 (QS system process) Pulse: 87 (QS system process) LaborFlag: Antepartum (QS system process) Datetime: 02/08/2017 20:29 NBP Sys/Cecy/Mean (mmHg): 131 (QS system process) : 81 (QS system process) : 100 (QS system process) Pulse: 88 (QS system process) LaborFlag: Antepartum (QS system process) Datetime: 02/08/2017 20:24 Epidural Positioning: Sitting (Crystal Brando, RN) Datetime: 02/08/2017 20:22 Procedure Verify: Correct Patient Identity; Correct Side and Site are Marked; Accurate Procedure Consent Form; Agreement on Procedure to be Done; Correct Patient Position; Addressed Need to Administer Antibiotics or Fluids for Irrigation; Safety Precautions Based on Patient History or Medication Use (Crystal Claremont, RN) Epidural Positioning: Sitting (Crystal Brando, RN) Datetime: 02/08/2017 20:21 NBP Sys/Cecy/Mean (mmHg): 126 (QS system process) : 81 (QS system process) : 95 (QS system process) Pulse: 95 (QS system process) Anesthesia Plans: Epidural (Crystal Brando, RN) LaborFlag: Antepartum (QS system process) Datetime: 02/08/2017 20:03 IV/Blood Work: IV Started; IV Bolus Started (Lina Ring, RN) Datetime: 02/08/2017 20:00 Stage of : Antepartum (Crystal Claremont, RN) Datetime: 02/08/2017 19:54 I/O Interventions: Up to BR (Crystal Brando, RN) Datetime: 02/08/2017 19:50 Communication Comments: Dr. Naresh notified of pt's dilation . Orders received to admit. (Camryn Shanika, RN) Datetime: 02/08/2017 19:47 Dilatation (cm): 5.0 (Camryn Shanika, RN) Effacement (%): 80 (Camryn Shanika, RN) Station: 0 (Camryn Shanika, RN) Exam by: JESSICA Ellison (Camryn Voss RN) Vaginal Bleeding: None (Camryn Voss RN) Cervix, Consistency: Soft (Camryn Voss RN) Cervix, Position: Midposition (Camryn Voss RN) Datetime: 02/08/2017 19:39 Frequency (min): q 2 min (Camryn Voss RN) Pain Scale: 3 (Camryn Voss RN) Pain Presence: Intermittent (Camryn Voss RN) Pain Type: Cramping (Camryn Voss RN) Pain Location: Abdomen (Camryn Voss RN) Pain Coping: Breathing Through Contractions (Camryn Voss RN) Vaginal Bleeding: None (Camryn Voss RN) Level of Consciousness: Fully Conscious (Camryn Voss RN) DTR's/Clonus: DTRs 1+ (Camryn Voss RN) Headache: Denies (Camryn Voss RN) Breath Sounds, Left: Clear and Equal (Camryn Voss RN) Breath Sounds, Right: Clear and Equal (Camryn Voss RN) Nausea/Vomiting: Denies (Camryn Voss RN) RUQ Epigastric Pain: Denies (Camryn Voss RN) Datetime: 02/08/2017 19:31 NBP Sys/Cecy/Mean (mmHg): 136 (QS system process) : 88 (QS system process) : 107 (QS system process) Pulse: 88 (QS system process)
[2017-02-09 09:35] LABS: HEMATOCRIT 39.1 % (36.0-47.0); HEMOGLOBIN 13.4 g/dL (12.0-15.5); HGB HCT DIFFERENCE 1.1; MEAN CORPUSCULAR HEMOGLOBIN 30.2 pg (27.0-33.4); MEAN CORPUSCULAR HGB CONC 34.4 g/dL (32.0-36.0); MEAN CORPUSCULAR VOLUME 88 fl (80-97); RED BLOOD COUNT 4.45 10^6/uL (3.72-5.28); RED CELL DISTRIBUTION WIDTH 13.7 % (11.5-14.0); WHITE BLOOD COUNT 12.1 10^3/uL (4.0-10.5)
[2017-02-09] MEDS: PRENATAL VITAMIN W-O CA NO5/FE FUMARATE/FA CAPSULE PO SCH (09:57)
[2017-02-09] MEDS: DOCUSATE SODIUM 100 MG CAPSULE PO SCH ×2 (09:57→17:44)
[2017-02-09] MEDS: FERROUS SULFATE 325 MG TABLET PO SCH ×2 (09:58→17:44)
[2017-02-09] MEDS: SENNOSIDES/DOCUSATE 8.6-50 MG 1 EACH TABLET PO SCH (09:58)
--- NOTE | 2017-02-09 10:08 | PDOC PROGRESS REPORT ---
Subjective-OB Subjective: Post Delivery Day: 21 year old. Denies any needs at this time Physical Exam (OB) Vital Signs: Temp Pulse Resp BP Pulse Ox 98.0 F 70 17 113/75 97 02/09/17 07:45 02/09/17 07:45 02/09/17 07:45 02/09/17 07:45 02/09/17 07:45 Intake & Output 02/08/17 02/09/17 02/10/17 06:59 06:59 06:59 Weight 74.9 kg - Lochia Lochia Amount: Small 10-25 ml Lochia Color: Rubra/Red - Abdomen Description: Soft Hernia Present: No Bowel Sounds: Normoactive Flatus Presence: Present Stool: No Fundal Description: Firm, Midline Fundal Height: u/u - u/2 Objective-Diagnostic Laboratory: 02/09/17 07:28 02/08/17 02/08/17 02/08/17 19:30 20:05 20:05 WBC 9.3 RBC 4.10 Hgb 12.5 Hct 35.6 L MCV 87 MCH 30.6 MCHC 35.3 RDW 13.7 Plt Count 205 Seg Neutrophils % 60.0 Lymphocytes % 29.7 Monocytes % 7.5 Eosinophils % 2.4 Basophils % 0.4 Absolute Neutrophils 5.6 Absolute Lymphocytes 2.8 Absolute Monocytes 0.7 Absolute Eosinophils 0.2 Absolute Basophils 0.0 Urine Color YELLOW Urine Appearance SLIGHTLY-CLOUDY Urine pH 7.0 Ur Specific [place] 1.009 Urine Protein NEGATIVE Urine Glucose (UA) NEGATIVE Urine Ketones NEGATIVE Urine Blood NEGATIVE Urine Nitrite NEGATIVE Ur Leukocyte Esterase TRACE H Blood Type A POSITIVE Antibody Screen NEGATIVE 02/09/17 07:28 WBC 12.1 H RBC 4.45 Hgb 13.4 Hct 39.1 MCV 88 MCH 30.2 MCHC 34.4 RDW 13.7 Plt Count 201 Seg Neutrophils % Lymphocytes % Monocytes % Eosinophils % Basophils % Absolute Neutrophils Absolute Lymphocytes Absolute Monocytes Absolute Eosinophils Absolute Basophils Urine Color Urine Appearance Urine pH Ur Specific Bloom[place] Urine Protein Urine Glucose (UA) Urine Ketones Urine Blood Urine Nitrite Ur Leukocyte Esterase Blood Type Antibody Screen
--- NOTE | 2017-02-09 18:00 | L&D General Admission ---
General Admit Datetime Report Generated by CPN: 02/09/2017 18:00 INFORMATION Patient Age: 21 (01/31/2017 07:38:QS system process) EDC: 02/12/2017 00:00 (02/06/2017 00:28:Flora Tao RN) : 2 (02/06/2017 00:28:Monica Altman RN) Para: 1 (02/06/2017 00:28:Monica Altman RN) Term: 1 (02/06/2017 00:28:Monica Altman RN) : 0 (02/06/2017 00:28:Monica Altman RN) Spontaneous Abortions: 0 (02/06/2017 00:28:Monica Altman RN) Induced Abortions: 0 (02/06/2017 00:28:Monica Altman RN) Livin (02/06/2017 00:28:Monica Altman RN) Cesareans: 0 (02/06/2017 00:28:Monica Altman RN) VBACs: 0 (02/06/2017 00:28:Monica Altman RN) Ectopic: 0 (02/06/2017 00:28:Monica Altman RN) Multiple Births: 0 (02/06/2017 00:28:Monica Altman RN) Baby, Number in Womb: 1 (02/06/2017 00:28:Monica Altman RN) CARE Primary Drive In Theater Attendant: [facility] (02/06/2017 00:28:Monica Altman RN) Month of 1st Visit: July 2016 (02/06/2017 00:28:Monica Altman RN) Adequate Care: Yes (02/06/2017 00:28:Monica Altman RN) Prepregnancy Weight (lb): 145 (02/06/2017 00:28:Monica Altman RN) Prepregnancy Weight (kg): 65.9 (02/06/2017 00:28:QS system process) Height (in): 66 (02/09/2017 10:18:QS system process) ALLERGIES Medication Allergy: No (02/06/2017 00:28:Monica Altman RN) Medication Allergies: No Known Allergies (02/08/2017) (02/08/2017 19:36:QS system process) Latex Allergy: No Latex Allergies (02/06/2017 00:28:Monica Altman RN) COMMUNICATION Primary Language: [place] Citizen (02/06/2017 00:28:Monica Altman RN) Medical Tx Preferred Language: [place] Citizen (02/06/2017 00:28:Monica Altman RN) Communication Barrier(s): None (02/06/2017 00:28:Monica Altman RN) DEMOGRAPHICS Address: [address] [place] [address] (01/31/2017 07:38:QS system process) Zipcode: [address] (01/31/2017 07:38:QS system process) Home (01/31/2017 07:38:QS system process) N: [phone] (01/31/2017 07:38:QS system process) Next of Kin Name: GUME CHUNG (01/31/2017 07:38:QS system process) Next of Kin (01/31/2017 07:38:QS system process) Next of Kin Relationship: SPO (01/31/2017 07:38:QS system process) Date of : 1995 (01/31/2017 07:38:QS system process) Marital Status: (01/31/2017 07:38:QS system process) Sex: Female (01/31/2017 07:38:QS system process) Race: (01/31/2017 07:38:QS system process) Ethnicity: Non- or (01/31/2017 07:38:QS system process) Buddhism: Lutheran (01/31/2017 07:38:QS system process) DRUG AND ALCOHOL USE Alcohol: No (02/06/2017 00:28:Lina Jenkins RN) Cigarettes: Never Smoker. [id number] (02/06/2017 00:28:Lina Jenkins RN) Marijuana: No (02/06/2017 00:28:Lina Jenkins RN) Cocaine: No (02/06/2017 00:28:Lina Jenkins RN) Other Illicit Drugs: No (02/06/2017 00:28:Lina Jenkins RN) VACCINE HISTORY Influenza Vaccine: Yes (02/06/2017 00:28:Lina Jenkins RN) Pneumococcal Vaccine: No (02/06/2017 00:28:Lina Jenkins RN) Tetanus Vaccine: Uncertain (02/06/2017 00:28:Lina Jenkins RN) Tdap Vaccine: Yes (02/06/2017 00:28:Lina Jenkins RN) Hepatitis B Vaccine: Yes (02/06/2017 00:28:Lina Jenkins RN) Road Crew Member: [facility] (02/06/2017 00:28:Lina Jenkins RN) Feeding Preference: Breast (02/06/2017 00:28:Lina Jenkins RN) Benefit of Breast Feed Discussed: Yes (02/06/2017 00:28:Lina Jenkins RN) Circumcision: Yes (02/06/2017 00:28:Lina Jenkins RN) Classes Attended: No (02/06/2017 00:28:Lina Jenkins RN) Tubal Ligation: No (02/06/2017 00:28:Lina Jenkins RN) Tubal Authorization Signed: N/A (02/06/2017 00:28:Lina Jenkins RN) Consent: N/A (02/06/2017 00:28:Lina Jenkins RN) Consent Signed: N/A (02/06/2017 00:28:Lina Jenkins RN) Pain Management Plans: Epidural (02/06/2017 00:28:Lina Jenkins RN) Plans for Labor and Delivery: None (02/06/2017 00:28:Lina Jenkins RN) Support Person: Gume Jimenez (02/06/2017 00:28:Lina Jenkins RN) Support Person Relationship: (02/06/2017 00:28:Lina Jenkins RN) Cultural/Spritual Practice: No (02/06/2017 00:28:Lina Jenkins RN) Spir/Cult Dietary Needs: No (02/06/2017 00:28:Lina Jenkins RN) LIVING SITUATION/DISCHARGE PLAN Living Arrangements: House (02/06/2017 00:28:Lina Jenkins RN) Adequate Access to:: Electric; Heat; Refrigeration; Plumbing/Running water; Phone; Transportation (02/06/2017 00:28:Lina Jenkins RN) WIC Program: No (02/06/2017 00:28:Lina Jenkins RN) Discharge Director Of Public Relations Person: Gume Jimenez (02/06/2017 00:28:Lina Jenkins RN) Person to Help after Discharge: Gume Jimenez (02/06/2017 00:28:Lina Jenkins RN) Currently Using Commun Resources: No (02/06/2017 00:28:Lina Jenkins RN) Outside Agency/Gear Tester: No (02/06/2017 00:28:Lina Jenkins RN) Car Seat for Discharge: Yes (02/06/2017 00:28:Lina Jenkins RN) Adoption Requested: No (02/06/2017 00:28:Lina Jenkins RN) Pt Contact w/infant Post : N/A (02/06/2017 00:28:Lina Jenkins RN) LABS Blood Type: A Positive (02/06/2017 00:28:Monica Altman RN) Antibody Screen: Negative (02/06/2017 00:28:Monica Altman RN) Rho(G) this : Not Applicable (02/06/2017 00:28:Monica Altman RN) Hemoglobin: 13.4 (02/09/2017 07:28:QS system process) Hematocrit: 39.1 (02/09/2017 07:28:QS system process) MCV: 88 (02/09/2017 07:28:QS system process) Group Beta Strep: Negative (02/06/2017 00:28:Monica Altman RN) Gonorrhea: Negative (02/06/2017 00:28:Monica Altman RN) Chlamydia: Negative (02/06/2017 00:28:Monica Altman RN) RPR/VDRL: Nonreactive (02/06/2017 00:28:Monica Altman RN) HIV Results: Negative (02/06/2017 00:28:Monica Altman RN) Hepatitis B: Negative (02/06/2017 00:28:Monica Altman RN) Rubella: Immune (02/06/2017 00:28:Monica Altman RN) OB/PREVIOUS HISTORY Previous Procedures: Ultrasound; NST (02/06/2017 00:28:Monica Altman RN) Current Procedures: Ultrasound; NST (02/06/2017 00:28:Monica Altman RN) History of Previous : No (02/06/2017 00:28:Lina Jenkins RN) History of Gestational Diabetes: No (02/06/2017 00:28:Lina Jenkins RN) History of PIH: Yes (02/06/2017 00:28:Monica Altman RN) History of Incompetent Cervix: No (02/06/2017 00:28:Lina Jenkins RN) History of Placenta Previa/Abrup: No (02/06/2017 00:28:Lina Jenkins RN) History of Macrosomia: No (02/06/2017 00:28:Lina Jenkins RN) History of IUGR: No (02/06/2017 00:28:Lina Jenkins RN) History of Hemorrhage: No (02/06/2017 00:28:Lina Jenkins RN) History of Loss/Stillborn: No (02/06/2017 00:28:Lina Jenkins RN) History of : No (02/06/2017 00:28:Lina Jenkins RN) History of D (Rh) Sensitization: No (02/06/2017 00:28:Lina Jenkins RN) History Recurrent Loss/Stillborn: No (02/06/2017 00:28:Lina Jenkins RN) History Depression/PP Depression: No (02/06/2017 00:28:Lina Jenkins RN) History of Uterine Anomaly/PHILOMENA: No (02/06/2017 00:28:Lina Jenkins RN) History of Infertility: No (02/06/2017 00:28:Lina Jenkins RN) History of ART Treatment: No (02/06/2017 00:28:Lina Jenkins RN) History of PHILOMENA: No (02/06/2017 00:28:Lina Jenkins RN) Comments Obstetrical History: G1- of female @ 39.6 wks gestation 8lbs 5oz (on mag) G2-Current (02/06/2017 00:28:Lina Jenkins RN) MEDICAL HISTORY Med Hx Diabetes: No (02/06/2017 00:28:Lina Jenkins RN) Med Hx Hypertension: No (02/06/2017 00:28:Lina Jenkins RN) Med Hx Heart Disease: No (02/06/2017 00:28:Lina Jenkins RN) Med Hx Autoimmune Disorder: No (02/06/2017 00:28:Lina Jenkins RN) Med Hx Kidney Disease/UTI: Yes (02/06/2017 00:28:Monica Altman RN) Med Hx Neurologic/Epilepsy: No (02/06/2017 00:28:Lina Jenkins RN) Med Hx Psychiatric Disorders: No (02/06/2017 00:28:Lina Jenkins RN) Med Hx Hepatitis/Liver Disease: No (02/06/2017 00:28:Lina Jenkins RN) Med Hx Varicosities/Phlebitis: No (02/06/2017 00:28:Lina Jenkins RN) Med Hx Thyroid Dysfunction: No (02/06/2017 00:28:Lina Jenkins RN) Med Hx Trauma/Violence: No (02/06/2017 00:28:Lina Jenkins RN) Med Hx Blood Transfusion: No (02/06/2017 00:28:Lina Jenkins RN) Med Hx Pulmonary (Asthma,TB): No (02/06/2017 00:28:Lina Jenkins RN) Med Hx Breast: No (02/06/2017 00:28:Lina Jenkins RN) Med Hx STONE LATHE OPERATOR Surgery: No (02/06/2017 00:28:Lina Jenkins RN) Med Hx Hospitalization/Surgery: Yes (02/06/2017 00:28:Lian Jenkins RN) Med Hx Anesthetic Complications: No (02/06/2017 00:28:Lina Jenkins RN) Med Hx Abnormal Pap Smear: No (02/06/2017 00:28:Lina Jenkins RN) Other Medical Diseases: No (02/06/2017 00:28:Lina Jenkins RN) Med Hx Significant Family Hx: No (02/06/2017 00:28:Lina Jenkins RN) Details of Med/Surg Hx: UTI x 1 during ;hospitalized for childbirth (02/06/2017 00:28:Camryn Voss RN) INFECTIOUS HISTORY Inf Hx Gonorrhea: No (02/06/2017 00:28:Lina Jenkins RN) Inf Hx Chlamydia: No (02/06/2017 00:28:Lina Jenkins RN) Inf Hx Syphilis: No (02/06/2017 00:28:Lina Jenkins RN) Inf Hx HIV/AIDS: No (02/06/2017 00:28:Lina Jenkins RN) Inf Hx Human Papilloma Virus: No (02/06/2017 00:28:Lina Jenkins RN) Inf Hx Pt/Partner Genital Herpes: No (02/06/2017 00:28:Lina Jenkins RN) Inf Hx Tuberculosis/Exposure: No (02/06/2017 00:28:Lina Jenkins RN) Inf Hx Hepatitis B,C: No (02/06/2017 00:28:Lina Jenkins RN) Inf Hx Rash or Viral Illness: No (02/06/2017 00:28:Lina Jenkins RN) Details of Infectious Hx: denies (02/06/2017 00:28:Lina Jenkins RN) GENETIC HISTORY Gen Hx Age >=35 at BERENICE: No (02/06/2017 00:28:Lina Jenkins RN) Gen Hx Thalassemia: No (02/06/2017 00:28:Lina Jenkins RN) Gen Hx Congenital Heart Defect: No (02/06/2017 00:28:Lina Jenkins RN) Gen Hx Neural Tube Defect: No (02/06/2017 00:28:Lina Jenkins RN) Gen Hx Down's Syndrome: No (02/06/2017 00:28:Lina Jenkins RN) Gen Hx Casey-Sachs: No (02/06/2017 00:28:Lina Jenkins RN) Gen Hx Ramirez: No (02/06/2017 00:28:Lina Jenkins RN) Gen Hx Familial Dysautonomia: No (02/06/2017 00:28:Lina Jenkins RN) Gen Hx Sickle Cell Disease/Trait: No (02/06/2017 00:28:Lina Jenkins RN) Gen Hx Hemophilia/Blood Disorder: No (02/06/2017 00:28:Lina Jenkins RN) Gen Hx Muscular Dystrophy: No (02/06/2017 00:28:Lina Jenkins RN) Gen Hx Other Genetic History: No (02/06/2017 00:28:Lina Jenkins RN) Gen Hx Drugs/Meds since LMP: Yes (02/06/2017 00:28:Lina Jenkins RN) Gen Hx Medications: PNV (02/06/2017 00:28:Lina Jenkins RN)
--- NOTE | 2017-02-09 18:00 | L&D Current Admission ---
Current Admit Datetime Report Generated by CPN: 02/09/2017 18:00 ADMISSION INFORMATION Current Admit Date/Time: 02/08/2017 20:12 (02/08/2017 19:39:Ling Michaels RN) Reason for Admission: Onset of Labor (02/08/2017 19:39:Ling Michaels RN) Chief Complaint: Contractions (02/08/2017 19:39:Camryn Voss RN) Medications During : Vitamin (02/08/2017 19:39:Ling Michaels RN) EGA per Dates: 39.3 (02/08/2017 19:39:QS system process) Method of Arrival: Wheelchair (02/08/2017 19:39:Ling Michaels RN) Reason for Induction: Not Applicable (02/08/2017 19:39:Ling Michaels RN) Records Available: Yes (02/08/2017 19:39:Ling Michaels RN) General Admission Information: Reviewed (02/08/2017 19:39:Ling Michaels RN) General Admission Reviewed By: Kaylene Michaels RN (02/08/2017 19:39:Ling Michaels RN) BELONGINGS/ADVANCED DIRECTIVES Valuables/Personal Effects: Cell Phone (02/08/2017 19:39:Ling Michaels RN) Disposition of Belongings: Kept with Patient (02/08/2017 19:39:Ling Michaels RN) Advance Direct for Healthcare: No, and Wants No Information (02/08/2017 19:39:Ling Michaels RN) Durable Power of Medical Imaging Tech: No (02/08/2017 19:39:Ling Michaels RN) Living Will: No (02/08/2017 19:39:Ling Michaels RN) Organ Donor: Yes (02/08/2017 19:39:Ling Michaels RN) Pt Rights Information Given: Yes (02/08/2017 19:39:Ling Michaels RN) Pt Understands Pt Rights: Yes (02/08/2017 19:39:Ling Michaels RN) LEARNING ASSESSMENT Knowledge Level: Understands L_D Process; Understands Care Activities; Had Pre-Hospital Education; Understands Diagnosis (02/08/2017 19:39:Ling Michaels RN) Barriers to Learning: None (02/08/2017 19:39:Ling Michaels RN) Learning Readiness: Motivated (02/08/2017 19:39:Ling Michaels RN) Learns Best By: 1 to 1 Instruction (02/08/2017 19:39:Ling Michaels RN) Learning Needs: Labor and Delivery Process; Pain Management; Symptoms to Report; Treatment Plan; Medication; Diagnosis; Nutrition; Equipment; Infant Care; Community Resources (02/08/2017 19:39:Ling Michaels RN) DOMESTIC VIOLANCE SCREENING Dom Viol Threatened/Hurt: No (02/08/2017 19:39:Ling Michaels RN) Hx of Abuse/Neglect past 2yrs: No (02/08/2017 19:39:Ling Michaels RN) Feel Unsafe Going Home: No (02/08/2017 19:39:Ling Michaels RN) Addt'l Observ Indicating Abuse: No (02/08/2017 19:39:Ling Michaels RN) Reason Unable to Complete Screen: N/A, Screen Completed (02/08/2017 19:39:Ling Michaels RN) Considered Personal Harm/Suicide: No (02/08/2017 19:39:Ling Michaels RN) NUTRITIONAL/FUNCTIONAL SCREENING Problem with Appetite >5 Days: No (02/08/2017 19:39:Ling Michaels RN) Chew/Swallow Difficulties: No (02/08/2017 19:39:Ling Michaels RN) Inappropriate Wt Gain/Loss: No (02/08/2017 19:39:Ling Michaels RN) Presence Skin Breakdown/Ulcer: No (02/08/2017 19:39:Ling Michaels RN) Special Diet: No (02/08/2017 19:39:Ling Michaels RN) Pt Requests Ob/Gyn Nurse Visit: No (02/08/2017 19:39:Ling Michaels RN) Hx of Any of the Following?: N/A (02/08/2017 19:39:Ling Michaels RN) New Diagnosis of: N/A (02/08/2017 19:39:Ling Michaels RN) Requires Assist w/Ambulation: No (02/08/2017 19:39:Ling Michaels RN) Uses Assist Device to Ambulate: No (02/08/2017 19:39:Ling Michaels RN) Pt Requires Help w/ADL's: No (02/08/2017 19:39:Ling Michaels RN)
--- NOTE | 2017-02-09 18:15 | L&D Care Plan ---
LD CARE PLANS Datetime Report Generated by CPN: 02/09/2017 18:15 Datetime: 02/08/2017 19:56 State: Actual (Camryn Voss RN) Related To: Labor and Delivery Process (Camryn Voss RN) Goal(s): Patients Pain will be Assessed and Managed; Patient will Verbalize Adequate Relief of Pain or the Ability to [place] with Current Pain (Camryn Voss RN) Interventions: Assess Pain Severity on Scale of 0 (None) to 5 (Severe); Assess Type, Location and Intensity of Pain Each Time Client Reports Discomfort and Notify Provider if Unusal Pain Develops; Encourage Proper Breathing and Relaxation Techniques; Offer Alternatives Such as Repositioning, Calm Environment, Massages, Diversional Activities, Ice Pack, Splinting, and Ambulation; Administer Analgesics as Ordered; Assist with Epidural Placement as Appropriate; Evaluate Therapeutic Effectiveness of Medication and Treatments (Camryn Vsos RN) Outcome: Patient will Report Absence or Relief of Pain Consistent with Established Pain Goal (Camryn Voss RN) Outcome: Patient will have a Decrease in Signs and Symptoms of Discomfort (Camryn Voss RN) Outcome: Pain will be Controlled During Procedures (Camryn Voss RN) State: Risk For (Camryn Voss RN) Related To: Labor and Delivery Process; Fear of Unknown; Situational Crisis (Camryn Voss RN) Goal(s): Patient will have Decreased Anxiety and be able to Function at Acceptable Levels (Camryn Voss RN) Interventions: Assess Verbal and Nonverbal Behavioral Indicators of Anxiety; Assist Patient to Identify and Verbalize Symptoms of Anxiety; Identify and Demonstrate Techniques to Control Anxiety; Assist Patient with Coping Mechanisms to Manage Anxiety; Provide Theraputic Touch for the Patient; Explain to Patient, Using a Calm Reassuring Approach and Nonmedical Terms, All Activities, Procedures, and Concerns; Instruct Patient and Family about Post Discharge Care, Limitations, Symptoms to Report and Resources Available (Camryn Voss RN) Outcome: Patient will Identify, Verbalize and Demonstrate Techniques to Control Anxiety (Camryn Voss RN) Outcome: Patient's Posture, Facial Expressions, Gestures and Activity Level will Reflect Decreased Anxiety (Camryn Voss RN) Outcome: Patient will Verbalize a Sense of Control and/or Acceptance of the Situation (Camryn Voss RN) Outcome: Patient will Identify and Utilize Support Person (Camryn Voss RN) State: Risk For (Camryn Voss RN) Related To: Impending Alterations in Family Dynamics (Camryn Voss RN) Goal(s): Patient will Accurately Verbalize Understanding of Plan of Care and Treatment; Patient and Family will Accurately Verbalize Understanding of the Disease Process (Camryn Voss RN) Interventions: Assess Motivation and Willingness of Patient/Family to Learn; Assess Preferred Learning Mode: One to One Instruction, Reading, Videos, Group Discussion or Demonstration; Assess Barriers to Learning: Pain, Emotional State, Language Barrier, Cognitive Impairment, Visual or Hearing Deficits; Assess Patient and Family Knowledge of Disease Process, Medications and Treatment; Discuss Therapy and/or Treatment Options, Describe Rationale Behind Management, Therapy and Treatment Recommendations; Instruct Patient and Family on Signs and Symptoms to Report; Instruct Patient and Family on Medication Effects and Side Effects; Provide Appropriate and Timely Education Using Multiple Techniques; Provide Patient and Family with Support Group Information and Resources; Give Clear and Thorough Explanations and Demonstrations (Camryn Voss RN) Outcome: Patient and Family will Verbalize Understanding of Condition, Treatment and Signs and Symptoms to Report (Camryn Voss RN) Outcome: Patient will Identify Perceived Learning Needs and Express Motivation to Learn (Camryn Voss RN) Outcome: Patient will Verbalize Understanding of Desired Content, and/or Performs Desired Skill Prior to Discharge (Camryn Voss RN) State: Risk For (Camryn Voss RN) Related To: Prolonged Labor or Induction (Camryn Voss RN) Goal(s): Patient will Achieve and Maintain a Balanced Fluid Volume Status; Hemodynamically Stable (Camryn Voss RN) Interventions: Monitor Vital Signs; Auscultate Breath Sounds; Monitor Patient for Skin Turgor, Mucous Membranes, Dry Skin, Weakness, Headaches and Confusion; Provide Oral Fluids as Ordered; Initiate and Maintain Intravenous Fluids as Ordered; Monitor Intake and Output as Indicated Per Patient Status; Accurately Measure Blood Loss; Monitor Lab and Test Results as Obtained and Notify Provider of Abnormal Findings; Monitor Patient's Weight (Camryn Voss RN) Outcome: Patient will have Clear Lung Sounds (Camryn Voss RN) Outcome: Patient will have Vital Signs within Expected Range (Camryn Voss RN) Outcome: Urine Output will be within Expected Range (Camryn Voss RN) Outcome: Patient will have Minimal Generalized or Upper Extremity Edema (Camryn Voss RN) State: Risk For (Camryn Voss RN) Related To: Labor and Delivery Process; Anesthesia (Camryn Voss RN) Goal(s): Patient will Remain Free from Injury (Camryn Voss RN) Interventions: Monitoring as per Hospital Protocol; Assess Neurological Status; Perform Risk Assessment of Patients with Induction and ; Perform Fall Risk Assessment and Prevention per Hospital Protocol; Perform DVT Risk Assessment and Prophylaxis per Hospital Protocol; Ensure that Oxygen, Suction, and Resuscitation Medications and Equipment are Readily Available; Confirm Patient ID Prior to Procedure(s) and Medication Administration per Hospital Policy (Camryn Voss RN) Outcome: Successful Fall Risk Prevention (Camryn Voss RN) Outcome: Patient will Deliver Infant without Adverse [place] (Camryn Voss RN) Outcome: Patient's Neurological Status will Remain Stable (Camryn Voss RN) State: Risk For (Camryn Voss RN) Related To: Vaginal Delivery (Camryn Voss RN) Goal(s): Patient will Maintain Optimal Skin Integrity, Free of Breakdown, Injury or Infection (Camryn Voss RN) Interventions: Complete Screening for Pressure Ulcer Risk and Initiate Protocol per Hospital Policy; Monitor Site of Skin Impairment for Color Changes, Redness, Swelling, Warmth, Pain or Other Signs of Infection; Encourage and Assist with Position Changes; Monitor Patient's Mobility Status; Provide Adequate Nutrition and Fluids; Teach Patient Appropriate Hygienic Care; Teach Patient/Family Skin Care Management (Camryn Voss RN) Outcome: Patient will not have Evidence of Injury Such as Skin Breakdown, Scrapes, Cuts, or Bruising (Camryn Voss RN) Outcome: Patient will Report Any Altered Sensation or Pain at Site of Skin Impairment (Camryn Voss RN) Outcome: Patients Incisions and Wounds will be without Signs or Symptoms of Infection (Camryn Voss RN) Outcome: Patient will Demonstrate Understanding of Plan to Heal Skin and Prevent Reinjury and Verbalize Risk Factors (Camryn Voss RN) State: Risk For (Camryn Voss RN) Related To: Apprehension Related to [place] Care (Camryn Voss RN) Goal(s): Parents will Demonstrate Progressive Parenting Behaviors (Camryn Voss RN) Interventions: Assess for Adequacy of Support Systems; Observe and Encourage Patient/Family Infant Attachment and Bonding Activities and Provide Feedback; Assess Patient/Family Understanding of Infant's Condition and Provide Accurate Information About Condition, Treatment and Prognosis; Assess for Patient/Family Behaviors that May Indicate Lack of Attachment; Provide a Safe Non-judgmental Environment for Patient/Family to Discuss Concerns; Promote Patient/Family Cohesiveness by Encouraging Discussion and Problem Solving; Social Media Community Manager Referral as Indicated (Camryn Voss RN) Outcome: Patient/Family will Discuss Their Fears and the Possibility of Difficulties with Parenting (Camryn Voss RN) Outcome: Patient/Family will Exhibit Appropriate Bonding Behaviors with (Camryn Voss RN) Outcome: Patient/Family will Verbalize Positive Feelings and Demonstrate Affection and Caring Toward (Camryn Voss RN) State: Risk For (Camryn Voss RN) Goal(s): Patient will have an Intake of Nutrients Sufficient to Meet Metabolic Needs (Camryn Voss RN) Interventions: Nutritional Screening and Assessment per Hospital Policy; Consult Case Sealer for Further Assessment and Recommendations Regarding Food Preferences and Nutritional Support; Allow Patient to Plan and Order Diet when Possible; Monitor Laboratory Values That Indicate Nutritional Well-being; Consult Meat Process Worker for Nutritional Support Regarding Requirements; Document Actual Weight Initially and Weekly (Do Not Estimate); Encourage Patient Participation in Maintaining a Food Log as Indicated; Educate Patient on the Importance of Maintaining an Adequate Caloric Intake (Camryn Voss RN) Outcome: Patient will Receive Adequate Calories and Fluid Volume to Meet Metabolic Needs (Camryn Voss RN) Outcome: Patient will Select Foods or Meals that Support Adequate Nutrition (Camryn Voss RN)
--- NOTE | 2017-02-10 06:00 | L&D General Admission ---
General Admit Datetime Report Generated by CPN: 02/10/2017 06:00 INFORMATION Patient Age: 21 (01/31/2017 07:38:QS system process) EDC: 02/12/2017 00:00 (02/06/2017 00:28:Flora Tao RN) : 2 (02/06/2017 00:28:Monica Altman RN) Para: 1 (02/06/2017 00:28:Monica Altman RN) Term: 1 (02/06/2017 00:28:Monica Altman RN) : 0 (02/06/2017 00:28:Monica Altman RN) Spontaneous Abortions: 0 (02/06/2017 00:28:Monica Altman RN) Induced Abortions: 0 (02/06/2017 00:28:Monica Altman RN) Livin (02/06/2017 00:28:Monica Altman RN) Cesareans: 0 (02/06/2017 00:28:Monica Altman RN) VBACs: 0 (02/06/2017 00:28:Monica Altman RN) Ectopic: 0 (02/06/2017 00:28:Monica Altman RN) Multiple Births: 0 (02/06/2017 00:28:Monica Altman RN) Baby, Number in Womb: 1 (02/06/2017 00:28:Monica Altman RN) CARE Primary Rotary Engine Assembler: [facility] (02/06/2017 00:28:Monica Altman RN) Month of 1st Visit: July 2016 (02/06/2017 00:28:Monica Altman RN) Adequate Care: Yes (02/06/2017 00:28:Monica Altman RN) Prepregnancy Weight (lb): 145 (02/06/2017 00:28:Monica Altman RN) Prepregnancy Weight (kg): 65.9 (02/06/2017 00:28:QS system process) Height (in): 66 (02/09/2017 10:18:QS system process) ALLERGIES Medication Allergy: No (02/06/2017 00:28:Monica Altman RN) Medication Allergies: No Known Allergies (02/08/2017) (02/08/2017 19:36:QS system process) Latex Allergy: No Latex Allergies (02/06/2017 00:28:Monica Altman RN) COMMUNICATION Primary Language: Sudanese (02/06/2017 00:28:Monica Altman RN) Medical Tx Preferred Language: Sudanese (02/06/2017 00:28:Monica Altman RN) Communication Barrier(s): None (02/06/2017 00:28:Monica Altman RN) DEMOGRAPHICS Address: [address] [place] [address] (01/31/2017 07:38:QS system process) Zipcode: [address] (01/31/2017 07:38:QS system process) Home (01/31/2017 07:38:QS system process) N: [phone] (01/31/2017 07:38:QS system process) Next of Kin Name: GUME CHUNG (01/31/2017 07:38:QS system process) Next of Kin (01/31/2017 07:38:QS system process) Next of Kin Relationship: SPO (01/31/2017 07:38:QS system process) Date of : 1995 (01/31/2017 07:38:QS system process) Marital Status: (01/31/2017 07:38:QS system process) Sex: Female (01/31/2017 07:38:QS system process) Race: (01/31/2017 07:38:QS system process) Ethnicity: Non- or (01/31/2017 07:38:QS system process) Yazidi: Anabaptism (01/31/2017 07:38:QS system process) DRUG AND ALCOHOL USE Alcohol: No (02/06/2017 00:28:Lina Jenkins RN) Cigarettes: Never Smoker. [id number] (02/06/2017 00:28:Lina Jenkins RN) Marijuana: No (02/06/2017 00:28:Lina Jenkins RN) Cocaine: No (02/06/2017 00:28:Lina Jenkins RN) Other Illicit Drugs: No (02/06/2017 00:28:Lina Jenkins RN) VACCINE HISTORY Influenza Vaccine: Yes (02/06/2017 00:28:Lina Jenkins RN) Pneumococcal Vaccine: No (02/06/2017 00:28:Lina Jenkins RN) Tetanus Vaccine: Uncertain (02/06/2017 00:28:Lina Jenkins RN) Tdap Vaccine: Yes (02/06/2017 00:28:Lina Jenkins RN) Hepatitis B Vaccine: Yes (02/06/2017 00:28:Lina Jenkins RN) Family Intervention Specialist: [facility] (02/06/2017 00:28:Lina Jenkins RN) Feeding Preference: Breast (02/06/2017 00:28:Lina Jenkins RN) Benefit of Breast Feed Discussed: Yes (02/06/2017 00:28:Lina Jenkins RN) Circumcision: Yes (02/06/2017 00:28:Lina Jenkins RN) Classes Attended: No (02/06/2017 00:28:Lina Jenkins RN) Tubal Ligation: No (02/06/2017 00:28:Lina Jenkins RN) Tubal Authorization Signed: N/A (02/06/2017 00:28:Lina Jenkins RN) Consent: N/A (02/06/2017 00:28:Lina Jenkins RN) Consent Signed: N/A (02/06/2017 00:28:Lina Jenkins RN) Pain Management Plans: Epidural (02/06/2017 00:28:Lina Jenkins RN) Plans for Labor and Delivery: None (02/06/2017 00:28:Lina Jenkins RN) Support Person: Gume Jimenez (02/06/2017 00:28:Lina Jenkins RN) Support Person Relationship: (02/06/2017 00:28:Lina Jenkins RN) Cultural/Spritual Practice: No (02/06/2017 00:28:Lina Jenkins RN) Spir/Cult Dietary Needs: No (02/06/2017 00:28:Lina Jenkins RN) LIVING SITUATION/DISCHARGE PLAN Living Arrangements: House (02/06/2017 00:28:Lina Jenkins RN) Adequate Access to:: Electric; Heat; Refrigeration; Plumbing/Running water; Phone; Transportation (02/06/2017 00:28:Lina Jenkins RN) WIC Program: No (02/06/2017 00:28:Lina Jenkins RN) Discharge Check Grader Person: Gume Jimenez (02/06/2017 00:28:Lina Jenkins RN) Person to Help after Discharge: Gume Jimenez (02/06/2017 00:28:Lina Jenkins RN) Currently Using Commun Resources: No (02/06/2017 00:28:Lina Jenkins RN) Outside Agency/Licensed Final Expense Agents: No (02/06/2017 00:28:Lina Jenkins RN) Car Seat for Discharge: Yes (02/06/2017 00:28:Lina Jenkins RN) Adoption Requested: No (02/06/2017 00:28:Lina Jenkins RN) Pt Contact w/infant Post : N/A (02/06/2017 00:28:Lina Jenkins RN) LABS Blood Type: A Positive (02/06/2017 00:28:Monica Altman RN) Antibody Screen: Negative (02/06/2017 00:28:Monica Altman RN) Rho(G) this : Not Applicable (02/06/2017 00:28:Monica Altman RN) Hemoglobin: 13.4 (02/09/2017 07:28:QS system process) Hematocrit: 39.1 (02/09/2017 07:28:QS system process) MCV: 88 (02/09/2017 07:28:QS system process) Group Beta Strep: Negative (02/06/2017 00:28:Monica Altman RN) Gonorrhea: Negative (02/06/2017 00:28:Monica Altman RN) Chlamydia: Negative (02/06/2017 00:28:Monica Altman RN) RPR/VDRL: Nonreactive (02/06/2017 00:28:Monica Altman RN) HIV Results: Negative (02/06/2017 00:28:Monica Altman RN) Hepatitis B: Negative (02/06/2017 00:28:Monica Altman RN) Rubella: Immune (02/06/2017 00:28:Monica Altamn RN) OB/PREVIOUS HISTORY Previous Procedures: Ultrasound; NST (02/06/2017 00:28:Monica Altman RN) Current Procedures: Ultrasound; NST (02/06/2017 00:28:Monica Altman RN) History of Previous : No (02/06/2017 00:28:Lina Jenkins RN) History of Gestational Diabetes: No (02/06/2017 00:28:Lina Jenkins RN) History of PIH: Yes (02/06/2017 00:28:Monica Altman RN) History of Incompetent Cervix: No (02/06/2017 00:28:Lina Jenkins RN) History of Placenta Previa/Abrup: No (02/06/2017 00:28:Lina Jenkins RN) History of Macrosomia: No (02/06/2017 00:28:Lina Jenkins RN) History of IUGR: No (02/06/2017 00:28:Lina Jenkins RN) History of Hemorrhage: No (02/06/2017 00:28:Lina Jenkins RN) History of Loss/Stillborn: No (02/06/2017 00:28:Lina Jenkins RN) History of : No (02/06/2017 00:28:Lina Jenkins RN) History of D (Rh) Sensitization: No (02/06/2017 00:28:Lina Jenkins RN) History Recurrent Loss/Stillborn: No (02/06/2017 00:28:Lina Jenkins RN) History Depression/PP Depression: No (02/06/2017 00:28:Lina Jenkins RN) History of Uterine Anomaly/PHILOMENA: No (02/06/2017 00:28:Lina Jenkins RN) History of Infertility: No (02/06/2017 00:28:Lina Jenkins RN) History of ART Treatment: No (02/06/2017 00:28:Lina Jenkins RN) History of PHILOMENA: No (02/06/2017 00:28:Lina Jenkins RN) Comments Obstetrical History: G1- of female @ 39.6 wks gestation 8lbs 5oz (on mag) G2-Current (02/06/2017 00:28:Lina Jenkins RN) MEDICAL HISTORY Med Hx Diabetes: No (02/06/2017 00:28:Lina Jenkins RN) Med Hx Hypertension: No (02/06/2017 00:28:Lina Jenkins RN) Med Hx Heart Disease: No (02/06/2017 00:28:Lina Jenkins RN) Med Hx Autoimmune Disorder: No (02/06/2017 00:28:Lina Jenkins RN) Med Hx Kidney Disease/UTI: Yes (02/06/2017 00:28:Monica Altman RN) Med Hx Neurologic/Epilepsy: No (02/06/2017 00:28:Lina Jenkins RN) Med Hx Psychiatric Disorders: No (02/06/2017 00:28:Lina Jenkins RN) Med Hx Hepatitis/Liver Disease: No (02/06/2017 00:28:Lina Jenkins RN) Med Hx Varicosities/Phlebitis: No (02/06/2017 00:28:Lina Jenkins RN) Med Hx Thyroid Dysfunction: No (02/06/2017 00:28:Lina Jenkins RN) Med Hx Trauma/Violence: No (02/06/2017 00:28:Lina Jenkins RN) Med Hx Blood Transfusion: No (02/06/2017 00:28:Lina Jnekins RN) Med Hx Pulmonary (Asthma,TB): No (02/06/2017 00:28:Lina Jenkins RN) Med Hx Breast: No (02/06/2017 00:28:Lina Jenkins RN) Med Hx CONTACT CENTER SPECIALIST Surgery: No (02/06/2017 00:28:Lina Jenkins RN) Med Hx Hospitalization/Surgery: Yes (02/06/2017 00:28:Lina Jenkins RN) Med Hx Anesthetic Complications: No (02/06/2017 00:28:Lina Jenkins RN) Med Hx Abnormal Pap Smear: No (02/06/2017 00:28:Lina Jenkins RN) Other Medical Diseases: No (02/06/2017 00:28:Lina Jenkins RN) Med Hx Significant Family Hx: No (02/06/2017 00:28:Lina Jenkins RN) Details of Med/Surg Hx: UTI x 1 during ;hospitalized for childbirth (02/06/2017 00:28:Camryn Voss RN) INFECTIOUS HISTORY Inf Hx Gonorrhea: No (02/06/2017 00:28:Lina Jenkins RN) Inf Hx Chlamydia: No (02/06/2017 00:28:Lina Jenikns RN) Inf Hx Syphilis: No (02/06/2017 00:28:Lina Jenkins RN) Inf Hx HIV/AIDS: No (02/06/2017 00:28:Lina Jenkins RN) Inf Hx Human Papilloma Virus: No (02/06/2017 00:28:Lina Jenkins RN) Inf Hx Pt/Partner Genital Herpes: No (02/06/2017 00:28:Lina Jenkins RN) Inf Hx Tuberculosis/Exposure: No (02/06/2017 00:28:Lina Jenkins RN) Inf Hx Hepatitis B,C: No (02/06/2017 00:28:Lina Jenkins RN) Inf Hx Rash or Viral Illness: No (02/06/2017 00:28:Lina Jenkins RN) Details of Infectious Hx: denies (02/06/2017 00:28:Lina Jenkins RN) GENETIC HISTORY Gen Hx Age >=35 at [place]: No (02/06/2017 00:28:Lina Jenkins RN) Gen Hx Thalassemia: No (02/06/2017 00:28:Lina Jenkins RN) Gen Hx Congenital Heart Defect: No (02/06/2017 00:28:Lina Jenkins RN) Gen Hx Neural Tube Defect: No (02/06/2017 00:28:Lina Jenkins RN) Gen Hx Down's Syndrome: No (02/06/2017 00:28:Lina Jenkins RN) Gen Hx Casey-Sachs: No (02/06/2017 00:28:Lina Jenkins RN) Gen Hx Ramirez: No (02/06/2017 00:28:Lina Jenkins RN) Gen Hx Familial Dysautonomia: No (02/06/2017 00:28:Lina Jenkins RN) Gen Hx Sickle Cell Disease/Trait: No (02/06/2017 00:28:Lina Jenkins RN) Gen Hx Hemophilia/Blood Disorder: No (02/06/2017 00:28:Lina Jenkins RN) Gen Hx Muscular Dystrophy: No (02/06/2017 00:28:Lina Jenkins RN) Gen Hx Other Genetic History: No (02/06/2017 00:28:Lina Jenkins RN) Gen Hx Drugs/Meds since LMP: Yes (02/06/2017 00:28:Lina Jenkins RN) Gen Hx Medications: PNV (02/06/2017 00:28:Lina Jenkins RN)
--- NOTE | 2017-02-10 06:00 | L&D Current Admission ---
Current Admit Datetime Report Generated by CPN: 02/10/2017 06:00 ADMISSION INFORMATION Current Admit Date/Time: 02/08/2017 20:12 (02/08/2017 19:39:Ling Michaels RN) Reason for Admission: Onset of Labor (02/08/2017 19:39:Ling Michaels RN) Chief Complaint: Contractions (02/08/2017 19:39:Camryn Voss RN) Medications During : Vitamin (02/08/2017 19:39:Ling Michaels RN) EGA per Dates: 39.3 (02/08/2017 19:39:QS system process) Method of Arrival: Wheelchair (02/08/2017 19:39:Ling Michaels RN) Reason for Induction: Not Applicable (02/08/2017 19:39:Ling Michaels RN) Records Available: Yes (02/08/2017 19:39:Ling Michaels RN) General Admission Information: Reviewed (02/08/2017 19:39:Ling Michaels RN) General Admission Reviewed By: Kaylene Michaels RN (02/08/2017 19:39:Ling Michaels RN) BELONGINGS/ADVANCED DIRECTIVES Valuables/Personal Effects: Cell Phone (02/08/2017 19:39:Ling Michaels RN) Disposition of Belongings: Kept with Patient (02/08/2017 19:39:Ling Michaels RN) Advance Direct for Healthcare: No, and Wants No Information (02/08/2017 19:39:Ling Michaels RN) Durable Power of System Admin: No (02/08/2017 19:39:Ling Michaels RN) Living Will: No (02/08/2017 19:39:Ling Michaels RN) Organ Donor: Yes (02/08/2017 19:39:Ling Michaels RN) Pt Rights Information Given: Yes (02/08/2017 19:39:Ling Michaels RN) Pt Understands Pt Rights: Yes (02/08/2017 19:39:Ling Michaels RN) LEARNING ASSESSMENT Knowledge Level: Understands L_D Process; Understands Care Activities; Had Pre-Hospital Education; Understands Diagnosis (02/08/2017 19:39:Ling Michaels RN) Barriers to Learning: None (02/08/2017 19:39:Ling Michaels RN) Learning Readiness: Motivated (02/08/2017 19:39:Ling Michaels RN) Learns Best By: 1 to 1 Instruction (02/08/2017 19:39:Ling Michaels RN) Learning Needs: Labor and Delivery Process; Pain Management; Symptoms to Report; Treatment Plan; Medication; Diagnosis; Nutrition; Equipment; Infant Care; Community Resources (02/08/2017 19:39:Ling Michaels RN) DOMESTIC VIOLANCE SCREENING Dom Viol Threatened/Hurt: No (02/08/2017 19:39:Ling Micahels RN) Hx of Abuse/Neglect past 2yrs: No (02/08/2017 19:39:Ling Michaels RN) Feel Unsafe Going Home: No (02/08/2017 19:39:Ling Michaels RN) Addt'l Observ Indicating Abuse: No (02/08/2017 19:39:Ling Michaels RN) Reason Unable to Complete Screen: N/A, Screen Completed (02/08/2017 19:39:Ling Michaels RN) Considered Personal Harm/Suicide: No (02/08/2017 19:39:Ling Michaels RN) NUTRITIONAL/FUNCTIONAL SCREENING Problem with Appetite >5 Days: No (02/08/2017 19:39:Ling Michaels RN) Chew/Swallow Difficulties: No (02/08/2017 19:39:Ling Michaels RN) Inappropriate Wt Gain/Loss: No (02/08/2017 19:39:Ling Michaels RN) Presence Skin Breakdown/Ulcer: No (02/08/2017 19:39:Ling Michaels RN) Special Diet: No (02/08/2017 19:39:Ling Michaels RN) Pt Requests Overhead Distribution Engineer Visit: No (02/08/2017 19:39:Ling Michaels RN) Hx of Any of the Following?: N/A (02/08/2017 19:39:Ling Michaels RN) New Diagnosis of: N/A (02/08/2017 19:39:Ling Michaels RN) Requires Assist w/Ambulation: No (02/08/2017 19:39:Ling Michaels RN) Uses Assist Device to Ambulate: No (02/08/2017 19:39:Ling Michaels RN) Pt Requires Help w/ADL's: No (02/08/2017 19:39:Ling Michaels RN)
[2017-02-10] MEDS: IBUPROFEN 800 MG TABLET PO SCH (06:07)
[2017-02-10 08:34] VITALS: BP 97/52
[2017-02-10] MEDS: DOCUSATE SODIUM 100 MG CAPSULE PO SCH (09:09)
[2017-02-10] MEDS: PRENATAL VITAMIN W-O CA NO5/FE FUMARATE/FA CAPSULE PO SCH (09:09)
[2017-02-10] MEDS: SENNOSIDES/DOCUSATE 8.6-50 MG 1 EACH TABLET PO SCH (09:09)
[2017-02-10] MEDS: FERROUS SULFATE 325 MG TABLET PO SCH (09:09)
--- NOTE | 2017-02-10 09:36 | PDOC DISCHARGE SUMMARY ---
Final Diagnosis Discharge Date: 02/10/17 Discharge Data - Discharge Medication Home Medications: Hvs133/Iron Fumarate/FA/Dss [ 19 Tablet] 1 tab PO DAILY 08/21/15 Docusate Sodium [Colace 100 mg Capsule] 100 mg PO BID #60 capsule 02/10/17 Ibuprofen [Motrin 800 mg Tablet] 800 mg PO Q8 #60 tablet 02/10/17 Gestational Age: 39.3 Reason(s) for Admission: Onset of Labor Procedures: NST Intrapartum Procedure(s): Spontaneous Vaginal Delivery - [place] Data Baby 1 Male at 1 minute: 9 at 5 minutes: 9 Weight: 3435 kg Home with Mother: Yes Complications: No - Diagnosis Test Laboratory: Temp Pulse Resp BP Pulse Ox 97.9 F 65 16 97/52 L 98 02/10/17 08:50 02/10/17 08:50 02/10/17 08:50 02/10/17 07:37 02/10/17 08:50 02/08/17 02/08/17 02/09/17 19:30 20:05 07:28 RBC 4.10 4.45 Hgb 12.5 13.4 Hct 35.6 L 39.1 Urine Opiates Screen NEGATIVE - Discharge information/Instructions Discharge Activity: Activity As Tolerated, No Lifting Over 10 Pounds, Pelvic Rest, No tub bath Discharge Diet: Regular Disposition: HOME, SELF-CARE Follow up with: [facility] in: 4, Weeks
== END 2017-02-10 13:32 | disposition home or self-care (01) | DRG 775 ==
LOC: LC 19:16 → LR 19:53 → 2S 02-09 01:50
PROVIDERS: ADMIT Obstetrics & Gynecology; ATTEND Obstetrics & Gynecology
PROC: 10E0XZZ Delivery of Products of Conception, External Approach (ICD-10-PCS; principal; 2017-02-08)
DX: O76 Abnormality in fetal heart rate and rhythm complicating labor and delivery (principal); Z3A.39 39 weeks gestation of pregnancy; Z37.0 Single live birth
CPT/HCPCS: 36415; 80307; 81005; 85025; 85027; 86592; 86850; 86900; 86901; J2590; J3490

== ENCOUNTER 2017-11-21 21:17 | Emergency (ER) | payer OTHER, BC ==
[2017-11-21 21:32] VITALS: BP 124/62
--- NOTE | 2017-11-21 23:30 | ER Document Report ---
ED Flu Like - General Chief Complaint: Flu Symptoms Stated Complaint: FLU LIKE SYMPTOMS Time Seen by Provider: 11/21/17 23:15 Notes: Patient is a 26 week 22-year-old female presents emergency department complaining of flulike symptoms since Monday. She admits to body aches with nausea vomiting and couple episodes of loose stool. She also admits to nonproductive cough. States that she has 2 kids at home otherwise denies any other sick contacts. She did receive a flu vaccine. She states that she felt better yesterday and then today got exhausted taking care of her kids. States she feels much better after taking Tylenol. TRAVEL OUTSIDE OF THE [place] IN LAST 30 DAYS: No - Related Data Allergies/Adverse Reactions: No Known Allergies Allergy (Verified 02/08/17 19:36) Past Medical History - Social History Smoking Status: Unknown if Ever Smoked Family History: Reviewed & Not Pertinent Patient has suicidal ideation: No Patient has homicidal ideation: No Renal/ Medical History: Denies: Hx Peritoneal Dialysis Review of Systems - Review of Systems Constitutional: See HPI EENT: See HPI Cardiovascular: No symptoms reported Respiratory: See HPI Gastrointestinal: See HPI Musculoskeletal: See HPI -: Yes All other systems reviewed and negative Physical Exam - Vital signs Vitals: Temp Pulse Resp BP Pulse Ox 98.8 F 101 H 16 124/62 98 11/21/17 21:31 11/21/17 21:31 11/21/17 21:31 11/21/17 21:31 11/21/17 21:31 - Notes Notes: PHYSICAL EXAM GENERAL: Alert, interacts well. HEAD: Normocephalic, atraumatic. EYES: Pupils equal, round, and reactive to light. Extraocular movements intact. ENT: Oral mucosa moist, tongue midline. NECK: Full range of motion. Supple. Trachea midline. LUNGS: Clear to auscultation bilaterally, no wheezes, rales, or rhonchi. No respiratory distress. HEART: Regular rate and rhythm. No murmurs, gallops, or rubs. ABDOMEN: Soft, gravid, nondistended, nontender. No guarding, rebound, or rigidity.. Bowel sounds present in all 4 quadrants. EXTREMITIES: Moves all 4 extremities spontaneously. No edema, radial and dorsalis pedis pulses 2/4 bilaterally. No cyanosis. NEUROLOGICAL: Alert and oriented x4. Normal speech. PSYCH: Normal affect, normal mood. SKIN: Warm, dry, normal turgor. No rashes or lesions noted. Course - Re-evaluation Re-evalutation: 11/22/17 01:07 Patient is a 22-year-old female is hemodynamically stable, no acute distress and afebrile. Urinalysis does show evidence of 80 ketones, otherwise no evidence of urinary tract infection. Patient with benign belly exam no evidence of peripheral edema, hypertension with low concern for preeclampsia or HELLP. HT 171. presentation is most consistent with a viral upper respiratory infection. Patient is overall well appearance, vitals within normal limits, well-hydrated. Patient denies any headache, neck pain, and has no evidence of meningismus on examination. Lungs are clear bilaterally. No evidence of respiratory distress. Based on clinical exam and history, I do not suspect an acute pneumonia, meningitis, strep pharyngitis, or an acute encephalitis. Rapid influenza negative. No laboratory or imaging testing is indicated at this time. Will discharge patient with return precautions and followup recommendations. They are in agreement this plan have verbalized understanding return precautions. - Vital Signs Vital signs: Temp Pulse Resp BP Pulse Ox 98.8 F 101 H 16 124/62 98 11/21/17 21:31 11/21/17 21:31 11/21/17 21:31 11/21/17 21:31 11/21/17 21:31 - Laboratory Laboratory results interpreted by me: 11/21/17 23:10 Urine Protein 30 H Urine Ketones 80 H Urine Urobilinogen 2.0 H Urine Ascorbic Acid 40 H Discharge - Discharge Clinical Impression: URI (upper respiratory infection) Qualifiers: URI type: unspecified viral URI Qualified Code(s): J06.9 - Acute upper respiratory infection, unspecified Condition: Good Disposition: HOME, SELF-CARE Instructions: Acetaminophen, Upper Respiratory Illness ([facility]) Referrals: ROBERT CALHOUN MD [Primary Care Provider] - Follow up as needed [facility] [Provider Group] - Follow up tomorrow
[2017-11-22 00:11] LABS: APPEARANCE,URINE SLIGHTLY-CLOUDY; BILIRUBIN,URINE NEGATIVE (NEGATIVE); COLOR,URINE YELLOW; GLUCOSE, URINE NEGATIVE (NEGATIVE); KETONES,URINE 80 mg/dL (NEGATIVE); LEUKOCYTE ESTERASE,URINE NEGATIVE (NEGATIVE); NITRITE,URINE NEGATIVE (NEGATIVE); PROTEIN,URINE 30 mg/dL (NEGATIVE); URINE SPECIFIC GRAVITY 1.017
[2017-11-22] MEDS ORDERED: NORMAL SALINE 1000 ML 1,000 ML IV ONE (00:15)
[2017-11-22 00:21] LABS: A TYPE INFLUENZA AG NEGATIVE (NEGATIVE); B INFLUENZA AG NEGATIVE (NEGATIVE)
== END 2017-11-22 01:49 | disposition home or self-care (01) ==
LOC: ER 21:17
DX: J06.9 Acute upper respiratory infection, unspecified (principal); M79.1 Myalgia; R11.2 Nausea with vomiting, unspecified; R19.7 Diarrhea, unspecified; R05 Cough
CPT/HCPCS: 99283; 81001; 87804; J7030

== ENCOUNTER 2018-03-05 16:22 | Outpatient (CLI) | payer OTHER, BC ==
--- NOTE | 2018-03-05 17:33 | Non Stress Test Report ---
Non Stress Test Datetime Report Generated by CPN: 03/05/2018 17:32 INDICATION Indication for Study: Ordered by Provider; Other MONITORING Monitor Explained: Monitor Explained; Test Explained; Patient Verbalized Understanding Time on Monitor: 03/05/2018 17:03 Time off Monitor: 03/05/2018 17:26 NST Duration: 23 NST INTERVENTIONS NST Interventions: PO Hydration Physician Notified NST: H Markus CNM BABY A: [id number] BABY A Movement : Present Contraction Frequency : x0 FHR Baseline : 125 Accelerations : 15X15 Decelerations : None Variability : Moderate 6-25bpm NST Review: Meets Criteria for Reactive NST NST Results: Reactive NST REPORT Report Trigger: Send Report
== END 2018-03-05 18:00 | disposition home or self-care (01) ==
LOC: LC 16:22
PROVIDERS: ATTEND Obstetrics & Gynecology Gynecology
PROC: 4A1HXCZ Monitoring of Products of Conception, Cardiac Rate, External Approach (ICD-10-PCS; principal; 2018-03-05)
DX: O48.0 Post-term pregnancy (principal); Z3A.40 40 weeks gestation of pregnancy
CPT/HCPCS: 59025

== ENCOUNTER 2018-03-07 04:00 | Inpatient (IN) | payer OTHER, BC ==
[2018-03-07] MEDS ORDERED: OXYTOCIN/NORMAL SALINE 20 UNIT/1,000 ML RTUINJ IV PRN (16:07)
[2018-03-07] MEDS ORDERED: RINGERS SOLUTION,LACTATED 1,000 ML IV PRN (16:07)
[2018-03-07] MEDS ORDERED: RINGERS SOLUTION,LACTATED 300 ML IV ONE (16:07)
--- NOTE | 2018-03-07 16:26 | Admission Physical ---
Datetime Report Generated by CPN: 03/07/2018 16:25 CURRENT ADMISSION Hx Assessment: The History has been Reviewed and is Current Chief Complaint: Decreased Movement Indication for Induction: Postterm Indication for Induction- Other: Decrease FM Admit Impression : Postterm, Intrauterine ; No Active Labor; Intact Membranes Admit Plan: Admit to Unit; Initiate Labor Protocol; Initiate Labor Induction Protocol ALLERGIES Medication Allergies: No Medication Allergies: No Known Allergies (03/05/2018) Latex: No Latex Allergies OBSTETRICAL HISTORY EDC: 03/02/2018 00:00 : 3 Para: 2 Livin Gestational Diabetes: No Rh Sensitization: No Incompetent Cervix: No PHILOMENA: No Infertility: No ART Treatment: No Uterine Anomaly: No IUGR: No Hx Previous C/S: No Macrosomia: No Hx Loss/Stillborn: No PIH: No Hx : No Placenta Previa/Abruption: No Depression/PP Depression: No PTL/PROM: No Post Hemorrhage: No Obstetrical History Comments: G1 2015 girl G2 2016 G3 curerent SEE RECORDS Alcohol: No Marijuana : No Cocaine: No Other Illicit Drugs: No Cigarettes: Never Smoker. 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: No Heart Disease: No Hosp/Surgery: No Autoimmune Disorder: No Anesthetic Complications: No Kidney Disease: No Abnormal Pap Smear: No Neuro/Epilepsy: No Psychiatric Disorders: No Other Medical Diseases: No Hepatitis/Liver Disease: No Significant Family History: No Varicosities/Phlebitis: No Trauma/Violence : No Thyroid Dysfunction: No INFECTIOUS HISTORY Gonorrhea: No Genital Herpes: No Chlamydia: No Tuberculosis: No Syphilis: No Hepatitis: No HIV/AIDS Exposure: No Rash or Viral Illness: No HPV: No PHYSICAL EXAM General: Normal HEENT: Deferred Neurologic: Normal Thyroid: Normal Heart: Normal Lungs: Normal Breast: Deferred Back: Normal Abdomen: Normal Genitourinary Exam: Normal Extremities: Normal DTRs: Normal Pelvic Type: Adequate Physical Exam Comments: GBS Neg Decrease FM, NKA Vital Signs: Reviewed FETUS A EGA: 40.5 Monitoring: External US Admit Comment: IUP 40+5, seen in office for decrease FM, Seen by Dr. De Anda and took awhile to get the baby moving and sent her over for IOL, NKA, breast feeding, desires circ if boy Discussed POC with pt and hsb, Dr. Villanueva aware, Start Pitocin and and AROM PLANS FOR LABOR AND DELIVERY Pain Management: Epidural Feeding Preference: Breast Benefit of Breast Feed Discussed: Yes Circumcision: N/A INFORMED CONSENT Assignment: Reid Villanueva MD Signature: with User ID: [email or web address] : with User ID: [email or web address]
[2018-03-07 16:53] LABS: ABSOLUTE BASOPHILS # (AUTO) 0.1 10^3/uL (0.0-0.2); ABSOLUTE EOSINOPHILS # (AUTO) 0.7 10^3/uL (0.0-0.6); ABSOLUTE LYMPHOCYTES (AUTO) 2.4 10^3/uL (0.5-4.7); ABSOLUTE MONOCYTES (AUTO) 0.7 10^3/uL (0.1-1.4); ABSOLUTE NEUT (AUTO) 7.3 10^3/uL (1.7-8.2); BASOPHILS % (AUTO) 0.5 % (0-2); EOSINOPHILS % (AUTO) 6.5 % (0-6); HEMATOCRIT 38.9 % (36.0-47.0); HEMOGLOBIN 13.4 g/dL (12.0-15.5); LYMPHOCYTES % (AUTO) 21.4 % (13-45); MEAN CORPUSCULAR HEMOGLOBIN 30.3 pg (27.0-33.4); MEAN CORPUSCULAR HGB CONC 34.4 g/dL (32.0-36.0); MEAN CORPUSCULAR VOLUME 88 fl (80-97); MONOCYTES % (AUTO) 6.2 % (3-13); PLATELET COUNT 223 10^3/uL (150-450); RED BLOOD COUNT 4.42 10^6/uL (3.72-5.28); RED CELL DISTRIBUTION WIDTH 15.4 % (11.5-14.0); SEGMENTED NEUTROPHILS % (AUTO) 65.4 % (42-78); TOTAL CELLS COUNTED % (AUTO) 100 %; WHITE BLOOD COUNT 11.2 10^3/uL (4.0-10.5)
[2018-03-07 17:02] LABS: APPEARANCE,URINE SLIGHTLY-CLOUDY; BILIRUBIN,URINE NEGATIVE (NEGATIVE); COLOR,URINE YELLOW; GLUCOSE, URINE NEGATIVE (NEGATIVE); KETONES,URINE NEGATIVE (NEGATIVE); LEUKOCYTE ESTERASE,URINE NEGATIVE (NEGATIVE); NITRITE,URINE NEGATIVE (NEGATIVE); PROTEIN,URINE NEGATIVE (NEGATIVE); UROBILINOGEN,URINE NEGATIVE mg/dL (<2.0)
[2018-03-07 17:22] LABS: URINE AMPHETAMINES SCREEN NEGATIVE; URINE BARBITURATES SCREEN NEGATIVE; URINE BENZODIAZEPINES SCREEN NEGATIVE; URINE COCAINE SCREEN NEGATIVE; URINE MARIJUANA (THC) SCREEN NEGATIVE; URINE METHADONE SCREEN NEGATIVE; URINE PHENCYCLIDINE SCREEN NEGATIVE
[2018-03-07] MEDS ORDERED: OXYTOCIN/NORMAL SALINE 20 UNIT/1,000 ML RTUINJ ONE (20:55)
[2018-03-07] MEDS ORDERED: MISOPROSTOL 0.2 MG TABLET ONE (20:55)
[2018-03-07] MEDS ORDERED: LIDOCAINE 1% INJ-PF (10 MG/ML) 30 ML SDV ONE (20:55)
[2018-03-07] MEDS ORDERED: BUPIVACAINE HCL 0.25 % INJ/PF (2.5 MG/1 ML) 30 ML VIAL ONE (23:19)
[2018-03-07] MEDS ORDERED: EPHEDRINE SULFATE INJ 50 MG/1 ML AMPULE ONE (23:19)
[2018-03-07] MEDS ORDERED: FENTANYL/BUPIVACAINE/NS/PF 300 MCG/150 ML RTUINJ EPI ONE (23:20)
[2018-03-08] MEDS ORDERED: ZOLPIDEM TARTRATE 5 MG TABLET PO PRN (01:01)
[2018-03-08] MEDS ORDERED: PSEUDOEPHEDRINE HCL 30 MG TABLET PO PRN (01:01)
[2018-03-08] MEDS ORDERED: PROMETHAZINE HCL INJ 25 MG/1 ML VIAL IV PRN (01:01)
[2018-03-08] MEDS ORDERED: DIPH/PERTUSS(ACELL)/TETANUS VAC/PF 0.5 ML SYR (>=10YO) IM PRN (01:01)
[2018-03-08] MEDS ORDERED: ACETAMINOPHEN WITH CODEINE #3 TABLET PO PRN ×2 (01:01)
[2018-03-08] MEDS ORDERED: BENZOCAINE/MENTHOL AEROSOL SPRAY 56 ML TOP PRN (01:01)
[2018-03-08] MEDS ORDERED: MAGNESIUM HYDROXIDE SUSP 30 ML UDCUP PO PRN (01:01)
[2018-03-08] MEDS ORDERED: PROMETHAZINE HCL 25 MG SUPP.RECT PR PRN (01:01)
[2018-03-08] MEDS ORDERED: OXYTOCIN/NORMAL SALINE 20 UNIT/1,000 ML RTUINJ IV PRN (01:01)
[2018-03-08] MEDS ORDERED: PROMETHAZINE HCL 25 MG TABLET PO PRN (01:01)
[2018-03-08] MEDS ORDERED: ACETAMINOPHEN 650 MG SUPP.RECT PR PRN (01:01)
[2018-03-08] MEDS ORDERED: DIPHENHYDRAMINE HCL 25 MG CAPSULE PO PRN (01:01)
[2018-03-08] MEDS ORDERED: NA PHOS,M-B/NA PHOS,DI-BA (ADULT) 133 ML ENEMA PR PRN (01:01)
[2018-03-08] MEDS ORDERED: MEASLES,MUMPS&RUBELLA VACC/PF 0.5 ML VIAL SUBCUT PRN (01:01)
[2018-03-08] MEDS ORDERED: DIBUCAINE 1% OINTMENT 28 GM TP PRN (01:01)
[2018-03-08] MEDS ORDERED: GLYCERIN/WITCH HAZEL LEAF 1 EACH MED..PAD TP PRN (01:01)
[2018-03-08] MEDS ORDERED: PRENATAL VITAMIN W DHA CAPSULE PO ONE (01:15)
[2018-03-08] MEDS: IBUPROFEN 800 MG TABLET PO SCH ×3 (09:47→21:38)
--- NOTE | 2018-03-08 09:57 | Delivery Summary ---
Del Sum A-C Datetime Report Generated by CPN: 03/08/2018 09:57 DELIVERY PERSONNEL DELIVERY PERSONNEL: [id number] Delivery Doctor:: Reid Villanueva MD Labor and Delivery Nurse:: Berna Maharaj RN Nursery Nurse:: Savannah Eric RN Bicycle Fitter/TRAY FILLER: Savita Law ST MATERNAL INFORMATION Delivery Anesthesia: Epidural Medications After Delivery: Pitocin Drip 20 Units/1000ml NSS; Other-Please Comment Meds After Delivery Comment: cytotec 1000 RI Estimated Blood Loss (ml): 250 Maternal Complications: None LABOR SUMMARY EDC: 03/02/2018 00:00 No. Babies in Womb: 1 (Annotations: Data stored by [facility] on behalf of user) Attempted: No Labor Anesthesia: Epidural LABOR INFORMATION Reason for Induction: Indicated by Testing Onset of Labor: 03/07/2018 20:09 Complete Dilatation: 03/08/2018 05:58 Oxytocin: Induction Group B Beta Strep: Negative Steroids Given: None Reason Steroids Not Administered: Not Applicable MEMBRANES Membranes Rupture Method: Artificial Rupture of Membranes: 03/07/2018 20:09 Length of Rupture (hr): 10.00 Amniotic Fluid Color: Clear Amniotic Fluid Amount: None Amniotic Fluid Odor: Normal STAGES OF LABOR Stage 1 hr: 9 Stage 1 min: 49 Stage 2 hr: 0 Stage 2 min: 11 Stage 3 hr: 0 Stage 3 min: 10 Total Time in Labor hr: 10 Total Time in Labor min: 10 VAGINAL DELIVERY Episiotomy: None Laceration #1: None Laceration Extension #1: N/A Laceration Repair: Not Applicable Sponge Count Correct: Vaginal Sweep Performed Sharps Count Correct: N/A CSECTION DELIVERY Primary Indication: N/A Secondary Indication: N/A CSection Incidence: N/A Labor: N/A Elective: N/A CSection Incision: N/A BABY A INFORMATION Delivery Date/Time: 03/08/2018 06:09 Method of Delivery: Vaginal Born in Route : No : N/A Forceps: N/A Vacuum Extraction: N/A Shoulder Dystocia : No PRESENTATION/POSITION BABY A Presentation: Cephalic Cephalic Presentation: Vertex Vertex Position: Left Occipital Anterior Breech Presentation: N/A PLACENTA INFORMATION BABY A Placenta Delivery Time : 03/08/2018 06:19 Placenta Method of Delivery: Manual Removal Placenta Status: Delivered SCORES BABY A Heart Rate 1 min: >100 bpm Resp Effort 1 min: Good Cry Reflex Irritability 1 min: Cough or Sneeze or Pulls Away Muscle Tone 1 min: Active Motion Color 1 min: Blue/Pale Resuscitation Effort 1 min: Tactile Stimulation SCORE 1 MIN: 8 Heart Rate 5 min: >100 bpm Resp Effort 5 min: Good Cry Reflex Irritability 5 min: Cough or Sneeze or Pulls Away Muscle Tone 5 min: Active Motion Color 5 min: Body Waikele, Extremities Blue Resuscitation Effort 5 min: N/A SCORE 5 MIN: 9 INFANT INFORMATION BABY A Gestational Age at Delivery: 40.6 Gestational Status: Full Term- 39- 40.6 Weeks Outcome : Liveborn Infant Condition : Stable Infant Sex: Female IDENTIFICATION BABY A Verification Date/Time: 03/08/2018 07:00 ID Band Number: [id number] Mother's Name Verified: Yes Infant RN Verifying : Fili RN Additional Verifying Personnel: Ileana RN WEIGHT/LENGTH BABY A Infant Birthweight (gm): 3300 Infant Weight (lb): 7 Weight (oz): 4 Infant Length (in): 20.25 Length (cm): 51.44 CORD INFORMATION BABY A No. Cord Vessels: 3 Nuchal Cord : N/A Cord Blood Taken: Yes-For Storage (Mom's Blood type +) Suction: Mouth; Nose ASSESSMENT BABY A Infant Complications: None Physical Findings at Delivery: Within Normal Limits Respirations: Appears Normal Skin to Skin: Yes Skin to Skin Time (min): 60 Pelletizer Operator/ALS Called : No Care By: Afshin Eric RN Transferred To: Remains with Mother BABY B INFORMATION : N/A SIGNATURES Signature: with User ID: [email or web address]
[2018-03-08] MEDS ORDERED: PRENATAL VITAMIN W DHA CAPSULE PO SCH (10:00)
[2018-03-08] MEDS: FAMOTIDINE 20 MG TABLET PO SCH ×2 (10:05→21:38)
[2018-03-08] MEDS: FERROUS SULFATE 325 MG TABLET PO SCH ×2 (10:08→17:46)
[2018-03-08] MEDS: DOCUSATE SODIUM 100 MG CAPSULE PO SCH ×2 (10:09→17:46)
[2018-03-08] MEDS: SENNOSIDES/DOCUSATE 8.6-50 MG 1 EACH TABLET PO SCH (10:09)
[2018-03-08] MEDS: PRENATAL VITAMIN W DHA CAPSULE PO SCH (10:09)
[2018-03-09] MEDS: IBUPROFEN 800 MG TABLET PO SCH ×3 (05:08→22:08)
[2018-03-09 07:04] LABS: HEMATOCRIT 37.1 % (36.0-47.0); HEMOGLOBIN 12.7 g/dL (12.0-15.5); MEAN CORPUSCULAR HGB CONC 34.2 g/dL (32.0-36.0); MEAN CORPUSCULAR VOLUME 88 fl (80-97); PLATELET COUNT 221 10^3/uL (150-450); RED BLOOD COUNT 4.22 10^6/uL (3.72-5.28); RED CELL DISTRIBUTION WIDTH 14.9 % (11.5-14.0); WHITE BLOOD COUNT 10.9 10^3/uL (4.0-10.5)
--- NOTE | 2018-03-09 09:50 | PDOC PROGRESS REPORT ---
Subjective-OB Progress Note for:: 03/09/18 Physical Exam (OB) Vital Signs: Temp Pulse Resp BP Pulse Ox 98.0 F 82 16 119/56 L 99 03/09/18 07:49 03/09/18 07:49 03/09/18 07:49 03/09/18 07:49 03/09/18 07:49 Intake & Output 03/08/18 03/09/18 03/10/18 06:59 06:59 06:59 Weight 74.1 kg - PIH/Pre-Eclampsia DTR's: 2 + Clonus: Negative Headache: Absent Epigastric Pain: No Visual Changes: No - Lochia Lochia Amount: Small 10-25 ml Lochia Color: Rubra/Red - Abdomen Description: Soft Hernia Present: No Bowel Sounds: Normoactive Flatus Presence: Present Stool: Yes Fundal Description: Firm, Midline Fundal Height: u/u - u/2 Objective-Diagnostic Laboratory: 03/09/18 06:27 03/09/18 06:27 WBC 10.9 H RBC 4.22 Hgb 12.7 Hct 37.1 MCV 88 MCH 30.0 MCHC 34.2 RDW 14.9 H Plt Count 221
[2018-03-09] MEDS: PRENATAL VITAMIN W DHA CAPSULE PO SCH (09:56)
[2018-03-09] MEDS: DOCUSATE SODIUM 100 MG CAPSULE PO SCH ×2 (09:57→17:07)
[2018-03-09] MEDS: FERROUS SULFATE 325 MG TABLET PO SCH ×2 (09:57→17:07)
[2018-03-09] MEDS: FAMOTIDINE 20 MG TABLET PO SCH ×2 (09:58→22:09)
[2018-03-09] MEDS: SENNOSIDES/DOCUSATE 8.6-50 MG 1 EACH TABLET PO SCH (09:59)
[2018-03-10] MEDS: IBUPROFEN 800 MG TABLET PO SCH (05:22)
[2018-03-10 08:23] VITALS: BP 123/73
[2018-03-10] MEDS: PRENATAL VITAMIN W DHA CAPSULE PO SCH (09:39)
[2018-03-10] MEDS: SENNOSIDES/DOCUSATE 8.6-50 MG 1 EACH TABLET PO SCH (09:41)
[2018-03-10] MEDS: DOCUSATE SODIUM 100 MG CAPSULE PO SCH (09:41)
[2018-03-10] MEDS: FAMOTIDINE 20 MG TABLET PO SCH (09:41)
[2018-03-10] MEDS: FERROUS SULFATE 325 MG TABLET PO SCH (09:42)
--- NOTE | 2018-03-10 09:51 | PDOC PROGRESS REPORT ---
Subjective-OB Progress Note for:: 03/10/18 Subjective: Ready for discharge. Physical Exam (OB) Vital Signs: Temp Pulse Resp BP Pulse Ox 97.9 F 93 18 123/73 99 03/10/18 07:41 03/10/18 07:41 03/10/18 07:41 03/10/18 07:41 03/09/18 07:49 Intake & Output 03/09/18 03/10/18 03/11/18 06:59 06:59 06:59 Intake Total 1380 Balance 1380 - PIH/Pre-Eclampsia DTR's: 2 + Clonus: Negative Headache: Absent Epigastric Pain: No Visual Changes: No - Lochia Lochia Amount: Scant < 10 ml Lochia Color: Rubra/Red - Abdomen Description: Soft, Round Hernia Present: No Bowel Sounds: Normoactive Flatus Presence: Present Stool: Yes Fundal Description: Firm, Midline Fundal Height: u/u - u/2 Objective-Diagnostic Laboratory: 03/09/18 06:27
--- NOTE | 2018-03-10 10:08 | PDOC DISCHARGE SUMMARY ---
Final Diagnosis Discharge Date: 03/10/18 - Final Diagnosis (1) Hemoglobin C trait Is this a current diagnosis for this admission?: Yes (2) Is this a current diagnosis for this admission?: Yes (3) Short interval between pregnancies affecting , antepartum Is this a current diagnosis for this admission?: Yes (4) Vaginal delivery Is this a current diagnosis for this admission?: Yes Discharge Data - Discharge Medication Prescriptions: Ibuprofen [Motrin 800 mg Tablet] 800 mg PO Q8 #30 tablet Home Medications: Prenat 115/Iron Fum/Folic/Dss [ 19 Tablet] 1 tab PO DAILY 08/21/15 Ibuprofen [Motrin 800 mg Tablet] 800 mg PO Q8 #30 tablet 03/10/18 Gestational Age: 40.6 wks Reason(s) for Admission: Induction of Labor Procedures: Ultrasound Intrapartum Procedure(s): Spontaneous Vaginal Delivery - [place] Data Baby 1 Female at 1 minute: 8 at 5 minutes: 9 Weight: 3.289 kg Home with Mother: Yes Complications: No - Diagnosis Test Laboratory: Temp Pulse Resp BP Pulse Ox 97.9 F 93 18 123/73 99 03/10/18 07:41 03/10/18 07:41 03/10/18 07:41 03/10/18 07:41 03/09/18 07:49 03/07/18 03/07/18 03/09/18 16:10 16:39 06:27 RBC 4.42 4.22 Hgb 13.4 12.7 Hct 38.9 37.1 Urine Opiates Screen NEGATIVE - Discharge information/Instructions Discharge Activity: Activity As Tolerated, Balance Activity w/Rest, Pelvic Rest , Slowly Increase Activity, No tub bath Discharge Diet: Regular Disposition: HOME, SELF-CARE Follow up with: [facility] in: 4, Weeks
== END 2018-03-10 13:02 | disposition home or self-care (01) | DRG 775 ==
LOC: LC 04:00 → LR 16:00 → 2S 03-08 09:15
PROVIDERS: ADMIT Obstetrics & Gynecology; ATTEND Obstetrics & Gynecology
PROC: 10E0XZZ Delivery of Products of Conception, External Approach (ICD-10-PCS; principal; 2018-03-08)
DX: O48.0 Post-term pregnancy (principal); D58.2 Other hemoglobinopathies; Z3A.40 40 weeks gestation of pregnancy; Z37.0 Single live birth
CPT/HCPCS: 36415; 80307; 81005; 85025; 85027; 86592; 86850; 86900; 86901; 94760; J2550; J2590; J3010; J3490

== ENCOUNTER → 2020-12-03 | Outpatient (CLI) | payer OTHER ==
--- NOTE | 2020-12-03 15:08 | RADIOLOGY REPORT (SQ) ---
EXAM DESCRIPTION: CHEST 2 VIEWS IMAGES COMPLETED DATE/TIME: 12/03/2020 2:53 pm REASON FOR STUDY: (R07.9)CHEST PAIN, UNSPECIFIED COMPARISON: None. EXAM PARAMETERS: NUMBER OF VIEWS: two views TECHNIQUE: Digital Frontal and Lateral radiographic views of the chest acquired. RADIATION DOSE: NA LIMITATIONS: none FINDINGS: LUNGS AND PLEURA: No opacities, masses or pneumothorax. No pleural effusion. MEDIASTINUM AND HILAR STRUCTURES: No masses or contour abnormalities. HEART AND VASCULAR STRUCTURES: Heart normal size. No evidence for failure. BONES: No acute findings. HARDWARE: None in the chest. OTHER: No other significant finding. IMPRESSION: NO ACUTE RADIOGRAPHIC FINDING IN THE CHEST. TECHNICAL DOCUMENTATION: JOB ID: [id number] 2010 [employer]- All Rights Reserved Reading location - IP/workstation name: [email or web address]
[2020-12-03 16:11] LABS: ABSOLUTE EOSINOPHILS # (AUTO) 0.8 10^3/uL (0.0-0.6); ABSOLUTE LYMPHOCYTES (AUTO) 2.4 10^3/uL (0.5-4.7); ABSOLUTE MONOCYTES (AUTO) 0.3 10^3/uL (0.1-1.4); BASOPHILS % (AUTO) 0.4 % (0-2); EOSINOPHILS % (AUTO) 14.1 % (0-6); HEMATOCRIT 37.2 % (36.0-47.0); HEMOGLOBIN 12.9 g/dL (12.0-15.5); LYMPHOCYTES % (AUTO) 44.5 % (13-45); MEAN CORPUSCULAR HGB CONC 34.7 g/dL (32.0-36.0); MEAN CORPUSCULAR VOLUME 87 fl (80-97); MONOCYTES % (AUTO) 4.7 % (3-13); PLATELET COUNT 286 10^3/uL (150-450); RED BLOOD COUNT 4.29 10^6/uL (3.72-5.28); RED CELL DISTRIBUTION WIDTH 12.4 % (11.5-14.0); SEGMENTED NEUTROPHILS % (AUTO) 36.3 % (42-78); TOTAL CELLS COUNTED % (AUTO) 100 %; WHITE BLOOD COUNT 5.4 10^3/uL (4.0-10.5)
[2020-12-03 16:36] LABS: ALBUMIN 4.2 g/dL (3.5-5.0); ALKALINE PHOSPHATASE 36 U/L (38-126); ANION GAP 5 (5-19); ASPARTATE AMINO TRANSFERASE 20 U/L (14-36); BILIRUBIN,DIRECT 0.1 mg/dL (0.0-0.4); BILIRUBIN,TOTAL 0.4 mg/dL (0.2-1.3); BLOOD UREA NITROGEN 8 mg/dL (7-20); CALCIUM 9.4 mg/dL (8.4-10.2); CARBON DIOXIDE 32 mmol/L (22-30); CHLORIDE 101 mmol/L (98-107); GLUCOSE 113 mg/dL (75-110); POTASSIUM 4.2 mmol/L (3.6-5.0); TOTAL PROTEIN 7.1 g/dL (6.3-8.2)
--- NOTE | 2020-12-03 20:14 | EKG REPORT ---
SEVERITY:- NORMAL ECG - SINUS RHYTHM : Confirmed by: Cale Deshpande MD 03-Dec-2020 20:13:51
== END ==
LOC: OD 13:50
PROVIDERS: ATTEND Physician Assistant
DX: R07.9 Chest pain, unspecified (principal)
CPT/HCPCS: 36415; 71046; 80053; 85025; 85379; 93005; 93010